=== PATIENT | male | born 1955 | race Caucasian/White ===

== ENCOUNTER 2025-01-13 15:04 | Inpatient (IN) | payer MEDICARE, SELFPAY ==
[2025-01-13] VITALS (14 sets, daily range): BP systolic 73–169; BP diastolic 47–109; PULSE 59–130; RESP 11–24; TEMP 36.8; O2SAT 93–100; BMI 36.1
--- NOTE | ~2025-01-13 | US_ITS ---
EXAMINATION: US pelvic limited DATE: 01/16/2025 16:15 CDT INDICATION: Patient on continuous bladder irrigation after TURBT, and chronic anticoagulation for mec hanical valve. TECHNIQUE: Grayscale, color Doppler, and pulsed Doppler images of the bladder was obtained. COMPARISON: None.If prior imaging is available, comparison will be performed. FINDINGS: The bladder is minimally distended, with a Love catheter visualized. Within the bladder, is a 4.8 x 3.3 x 4.8 cm avascular focus of mixed echogenicity both superior and a nterior to the Love catheter balloon. This may represent patient's primary malignancy (although one would expect intrinsic vascular flow), versus a focus of thrombus (more likely). IMPRESSION: Findings within the bladder lumen which may represent thrombus (most likely), as detailed above. Reviewed, dictated and finalized at location A. IMPRESSION: Findings within the bladder lumen which may represent thrombus (most likely), a s detailed above.
--- NOTE | 2025-01-13 15:37 | ED.MALEGU ---
HPI - Male Genitourinary General Chief complaint: Urogenital-Male Stated complaint: Bladder mass removed-unable to urinate/bleeding Time Seen by Provider: 01/13/25 15:36 Source: patient and other ([facility]) Limitations: no limitations History of Present Illness HPI Narrative: Patient presents with inability to he urinary retention as well as hematuria. He felt a pressure in his abdomen has been having bloody urine. His last void was 3 hours prior to arrival. He recently underwent urologic surgery. He is on both warfarin as well as Lovenox having taken both at 12 noon. Related Data Home Medications ?Medication ?Instructions ?Recorded ?Confirmed ?Last Taken ?Type allopurinol 100 mg tablet 100 mg PO DAILY 01/13/25 01/13/25 01/13/25 09:00 History atorvastatin 80 mg tablet 80 mg PO QPM 01/13/25 01/13/25 01/13/25 09:00 History enoxaparin 120 mg/0.8 mL 120 mg subcut Q12H 01/13/25 01/13/25 01/13/25 12:00 History subcutaneous syringe fluticasone furoate 200 1 inh inhalation Q24H 01/13/25 01/13/25 01/13/25 09:00 History mcg-vilanterol 25 mcg/dose inhalation powder (Breo Ellipta) tiotropium bromide 2.5 2 puff inhalation Q24H 01/13/25 01/13/25 01/13/25 09:00 History mcg/actuation mist for inhalation (Spiriva Respimat) warfarin 4 mg tablet 4 mg PO WEEKLY 01/13/25 01/13/25 01/13/25 12:00 History Allergies Allergy/AdvReac Type Severity Reaction Status Date / Time No Known Allergies Allergy Verified 01/13/25 15:06 [facility] Past Medical History Medical History (Updated 01/13/25 @ 23:10 by Judie Thapa APRN) HLD (hyperlipidemia) Chronic anticoagulation r/t AV replacement Bladder cancer Surgical History Surgical History (Updated 01/14/25 @ 07:33 by Colin Hyman PA-C) History of aortic valve replacement History of transurethral resection of bladder tumor (TURBT) Social History Social History Smoking status: Former smoker Tobacco type: cigarettes Second hand tobacco smoke exposure: No Alcohol intake: never Substance use: never Substance use type: does not use Do You Feel Safe in your Home?: Yes Lack of Transportation: No Lack of Food: Never True Current Housing: I Have Housing Concerned About Future Housing: No Difficulty Paying Gas/Electric Bills: No Difficulty Paying for Meds: No Currently Unemployed: No Education: Trade/Vocational Certificate Difficulty w/ Childcare or Family Care: No Spiritual care concerns: No Exam Narrative: GENERAL: Well-appearing, well-nourished, in mild acute distress. HEAD: Normocephalic, atraumatic. EYES: Non injected, non icteric ENT: Nares clear, no rhinorrhea or epistaxis. NECK: Supple. CHEST: Speaking in full sentences. No respiratory distress. HEART: Tachycardic rate and rhythm. . ABDOMEN: Soft, distended. : Love in place but only scant marked hematuria, not currently draining EXTREMITIES: Normal range of motion. No lower extremity edema. SKIN: Warm, dry, no rash. NEURO: No focal deficits. Alert and oriented x3. PSYCH: Normal mood and affect. Course Vital Signs Vital signs: Vital Signs Temperature 98.2 F 01/13/25 15:11 Pulse Rate 130 H 01/13/25 15:11 Respiratory Rate 16 01/13/25 15:11 Blood Pressure 169/109 H 01/13/25 15:11 Pulse Oximetry 100 01/13/25 15:11 Temperature 97.7 F 01/14/25 05:20 Pulse Rate 77 01/14/25 05:20 Respiratory Rate 18 01/14/25 05:20 Blood Pressure 116/70 01/14/25 05:20 Pulse Oximetry 94 01/14/25 05:20 MDM - Male Genitourinary MDM Narrative Medical decision making narrative: Patient presents with acute urinary retention as well as hematuria, presumably the former due to the latter. Recently underwent urologic surgery. In the emergency department he is afebrile vital signs notable for marked tachycardia at 130 beats per minute as well as hypertension, 160 /109. Janell [facility]RA from urology comes to ED and had retrieved collateral information: Patient had TURBP with Dr. Brown at [facility] [place] and pathology came back with poorly differentiated urothelial carcinoma. 2.2 bladder wall mass on the 8th was seen. He is on chronic Coumadin (and Lovenox) for aortic valve replacement. Former Smoker. INR was 1 at [facility] this morning ; also had a CT abd/pelvis w/ and w/o imaging there. Having gross hematuria. Recommending Hold coumadin and all blood thinners. Start CBI. Patient had over 400 cc on bladder scan. Catheter inserted but did not drain due to amount of hematuria. Dr. Sweeney and Dr Watson come to bedside. Special hematuria catheter is inserted and CBI initiated. Urine output goes from dark, gross hematuria to energy conservation representative but still significant hematuria. Patient becomes hypotensive after this, suspect the sympathetic response has been released but also possibly a component of response from morphine. ALT and alk-phos elevation. Mild leukocytosis. Patient admitted to hospitalist service. Lab Data Attestation: I reviewed the patient's lab results. 01/14/25 06:19 01/14/25 06:19 Labs: Lab Results 01/13/25 01/14/25 Range/Units 16:31 06:19 WBC 11.5 H 12.5 H (4.5-10.0) K/mm3 RBC 4.68 3.83 L (4.6-6.20) M/mm3 Hgb 14.3 11.8 L (14.0-18.0) g/dL Hct 44.4 37.1 L (42.0-52.0) % MCV 94.9 96.9 (80-100) fl MCH 30.6 30.8 (26-34) pg MCHC 32.2 31.8 L (32-36) g/dl RDW 12.9 13.1 (11.5-14.5) % Plt Count 356 297 (150-375) k/mm3 MPV 9.8 9.9 (7.4-10.4) fl Immature Gran % (Auto) 0.4 0.6 H (0-0.5) % Neut % (Auto) 81.4 H 75.8 H (45.5-73.1) % Lymph % (Auto) 9.8 L 11.5 L (18.3-44.2) % Snyder % (Auto) 6.9 11.0 H (2.6-8.5) % Eos % (Auto) 0.9 0.8 (0-4.4) % Baso % (Auto) 0.6 0.3 (0.2-1.2) % Lymph # (Auto) 1.13 1.44 (0.9-3.2) K/mm3 Snyder # (Auto) 0.8 H 1.4 H (0.1-0.6) K/mm3 Eos # (Auto) 0.1 0.1 (0-0.3) K/mm3 Baso # (Auto) 0.1 0.0 (0.0-0.1) K/mm3 Abs Immat Gran (auto) 0.05 H 0.08 H (0.00-0.031) K/mm3 Absolute Neuts (auto) 9.4 H 9.5 H (1.3-6.7) K/mm3 Absolute Nucleated RBC 0.000 0.000 (0.0-0.012) K/mm3 Nucleated RBC % 0.0 0.0 (0.0-0.2) % PT 13.4 (11.1-14.7) Seconds INR 1.0 APTT 25.8 (22.3-36.8) Seconds Sodium 136 L 136 L (137-145) mmol/L Potassium 4.5 4.3 (3.4-5.0) mmol/L Chloride 105 106 (98-107) mmol/L Carbon Dioxide 19 L 25 (22-30) mmol/L Anion Gap 12 5 (4-12) mmol/L BUN 18 16 (9-20) mg/dL Creatinine 1.05 1.00 (0.7-1.3) mg/dL Estim Creat Clear Calc 72 73 ml/min Estimated GFR > 60 > 60 (59 - ) Glucose 119 H 101 (65-110) mg/dL Calcium 9.2 8.6 (8.4-10.2) mg/dL Total Bilirubin 0.8 (0.2-1.3) mg/dL AST 44 (17-59) U/L ALT 56 H (6-50) U/L Alkaline Phosphatase 200 H (38-126) U/L Total Protein 7.0 (6.3-8.2) g/dL Albumin 4.1 (3.5-5.1) g/dL Discharge Plan Discharge Clinical Impression: ALT (SGPT) level raised, Alkaline phosphatase elevation, Leukocytosis, Acute urinary retention, Bladder mass, Hematuria Patient Disposition: Still a Patient Condition: Stable
--- NOTE | 2025-01-13 15:52 | PC.NURSE ---
able to place [address] catheter, not draining attempting to irrigate catheter, some clots removed, still not draining Urology PA in room nno at this time
--- OUTSIDE RECORDS SUMMARY | 2025-01-13 15:56 | XMS_ITS | Encounter Summary ---
Author Organization [facility] Address [address] [place] [address] Care Team Providers Care Paper Products Printer Name Role Phone Diaz Chen MD Primary Care Provider Birgit Phipps MD Unavailable Kym Maguire [facility] Unavailable [phone] Reason for Referral * Imaging (Routine) - Closed Specialty Diagnoses / Procedures Referred By Contac t Referred To Contact RADIOLOGY Diagnoses Bladder mass Procedures CT ABD+[place] [address] [place] [address] Phone: tel: fax: Referral ID Status Reason Start Date Expiration Date Visits Re quested Visits Authorized [id number] Closed 01/05/2025 01/06/2026 1 1 Reason for Visit * Imaging (Routine) - Closed Specialty Diagnoses / Procedures Referred By Contac t Referred To Contact RADIOLOGY Diagnoses Bladder mass Procedures CT ABD+[place] [address] [place] [address] Phone: tel: fax: Referral ID Status Reason Start Date Expiration Date Visits Re quested Visits Authorized [id number] Closed 01/05/2025 01/06/2026 1 1 Encounter Details Date Type Department Care Team (Late st Contact Info) Description 01/13/2025 7:08 AM CDT Hospital Encounter 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 Sexual Orientation Not on file Occupation Industry Job Start Date Job End Date Self-employed [employer] Not on file Not on file Not on file Not on file Not on file Not on file Not on file documented as of this encounter Plan of Treatment Pending Results Name Type Priority Associated Diagnoses Date /Time CT ABD+PEL WWO CON CT Routine Bladder mass 01/13/2025 7:53 AM CDT Scheduled Orders Name Type Priority Associated Diagnoses Orde r Schedule CT ABD+PEL WWO CON CT Routine Bladder mass Once for 1 Occurrences starting 01/13/2025 until 01/13/2025 documented as of this encounter Visit Diagnoses Diagnosis Bladder mass Other specified disorders of bladder documented in this encounter Administered Medications Inactive Administered Medications - up to 3 most recent administrations Medication Order MAR Action Action Date Dose Rate Site iopamidol (ISOVUE-370) 76 % injection 91 mL 91 mL, Intravenous, IMG once as needed, Contrast, 1 dose, Starting on Thu01/13/25 at 0753, Until Thu01/13/25 at 0753 Given 01/13/2025 7:53 AM CDT 91 mLs documented in this encounter Care Teams Paper Products Printer Relationship Specialty Start Date End Date Diaz Chen MD [address] [place] [phone] PCP - General FAMILY PRACTICE 10/13/16 Birgit Phipps MD [address] [place] [address] [phone] Consulting Physician CARDIOVASCULAR DISEASE 12/24/24 Kym Maguire, NYA- [address] [place] [address] [phone] NURSE PRACTITIONER ADULT HEALTH 12/24/24 documented as of this encounter
--- OUTSIDE RECORDS SUMMARY | 2025-01-13 15:56 | XMS_ITS | Encounter Summary ---
Author Organization [facility] Address [address] [place] [address] Care Team Providers Care Cesspool Cleaner Name Role Phone Diaz Chen MD Primary Care Provider Austin Stokes MD Unavailable [phone] Bahman Acuña COMMUNITY RELATIONS COORDINATOR Unavailable [phone] Birgit Phipps MD Unavailable Kym Maguire [facility] Unavailable [phone] Encounter Details Date Type Department Care Team (Late st Contact Info) Description 12/12/2015 Abstract [facility] [place] [address] [place] [address] Austin Stokes MD [address] [facility], [address] [place], [place] [phone] Social History Tobacco Use Types Packs/Day Years Used Date Smoking Tobacco: Former Alcohol Use Standard Drinks/Week Comments No 0 (1 standard drink = 0.6 oz pur e alcohol) Sex and Gender Information Value Date Recorded Sex Assigned at Male 01/13/2025 7:06 AM CDT Legal Sex Male 9:26 PM CDT Gender Identity Male 11/25/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 Sexual Orientation Not on file Occupation Industry Job Start Date Job End Date Self-employed [employer] Not on file Not on file Not on file documented as of this encounter Plan of Treatment Not on file documented as of this encounter Visit Diagnoses Not on filedocumented in this encounter Additional Health Concerns Infection Onset Date Last Indicated Resolved Time COVID-19 Rule Out 09/15/2020 09/15/2020 09/16/2020 5:53 PM ELIGIBILITY SUPERVISOR documented as of this encounter Care Teams Cesspool Cleaner Relationship Specialty Start Date End Date Diaz Chen MD [address] [place], [place] [phone] PCP - General FAMILY PRACTICE 10/13/16 Austin Stokes MD [address] [place], [place] [phone] CARDIOVASCULAR DISEASE 10/13/16 3 5 Bahman Acuña APRN [address] [place], [place] [phone] Nurse Practitioner NURSE PRACTITIONER 09/19/21 12/23/24 Birgit Phipps MD [address] [place] [phone] Consulting Physician CARDIOVASCULAR DISEASE 12/24/24 Kym Maguire, ANP- [address] [place] [address] [phone] NURSE PRACTITIONER ADULT HEALTH 12/24/24 documented as of this encounter
--- OUTSIDE RECORDS SUMMARY | 2025-01-13 15:56 | XMS_ITS | Encounter Summary ---
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 Sexual Orientation Not on file Occupation Industry Job Start Date Job End Date Self-employed [employer] Not on file Not on file Not on file Not on file Not on file Not on file Not on file documented as of this encounter Plan of Treatment Not on file documented as of this encounter Visit Diagnoses Not on filedocumented in this encounter Care Teams Durability Engineer Relationship Specialty Start Date End Date Diaz Chen MD [address] [place] [phone] PCP - General FAMILY PRACTICE 10/13/16 Birgit Phipps MD [address] [place] [address] Consulting Physician CARDIOVASCULAR DISEASE 12/24/24 Kym Maguire, [facility]- [address] [place] [address] [phone] NURSE PRACTITIONER ADULT HEALTH 12/24/24 documented as of this encounter
--- OUTSIDE RECORDS SUMMARY | 2025-01-13 15:56 | XMS_ITS | Encounter Summary ---
Author Organization [facility] Address [facility] [place] [address] Care Team Providers Care Producer Name Role Phone Diaz Chen MD Primary Care Provider [phone] Birgit Phipps MD Unavailable Kym Maguire [facility]- Unavailable [phone] Encounter Details Date Type Department Care Team (Late st Contact Info) Description 01/13/2025 Orders Only [facility] [address] [facility] [address] [place] [address] Aidan Matthews, PAYROLL TECHNICIAN [address] [place] [address] Social History Tobacco Use Types Packs/Day Years Used Date Smoking Tobacco: Former Cigarettes Q uit: 2011 Smokeless Tobacco: Never Alcohol Use Standard Drinks/Week Comments Yes 0 (1 standard drink = 0.6 oz pur e alcohol) Occasionally- weekends Sex and Gender Information Value Date Recorded Sex Assigned at Male 01/13/2025 7:06 AM CDT Legal Sex Male 9:26 PM CDT Gender Identity Male 11/25/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 Sexual Orientation Not on file Occupation Industry Job Start Date Job End Date Self-employed [employer] Not on file Not on file Not on file Not on file Not on file Not on file Not on file documented as of this encounter Plan of Treatment Not on file documented as of this encounter Results * PROTIME/INR, VENOUS (01/13/2025 7:36 AM CDT) PROTIME 12.0 9.4 - 12.5 SEC 01/13/2025 7:[address] [facility] INR 1.0 0.8 - 1.0 01/13/2025 7:[address] [facility] 01/13/2025 7:36 AM CDT Aidan Matthews PAYROLL TECHNICIAN LABORATORY Fin al Result [facility] [address] [place] [address], documented in this encounter Visit Diagnoses Diagnosis Anticoagulated- Primary Encounter for long-term (current) use of anticoagulants Heart valve problem Endocarditis, valve unspecified, unspecified cause documented in this encounter Care Teams Producer Relationship Specialty Start Date End Date Diaz Chen MD [address] [place] [phone] PCP - General FAMILY PRACTICE 10/13/16 Birgit Phipps MD [address] [place] [address] [phone] Consulting Physician CARDIOVASCULAR DISEASE 12/24/24 Kym Maguire, ANP- [address] [place] [address] [phone] NURSE PRACTITIONER ADULT HEALTH 12/24/24 documented as of this encounter
--- OUTSIDE RECORDS SUMMARY | 2025-01-13 15:56 | XMS_ITS | Clinical Summary ---
Author Organization [facility] Address [address] [place] [address] Care Team Providers Care Spacer Type Bar And Segment Name Role Phone Diaz Chen MD Primary Care Provider Birgit Phipps MD Unavailable Kym Maguire [facility]- Unavailable [phone] Allergies No known active allergies Medications aspirin 81 MG chewable tablet Chew 1 tablet (81 mg total) by mouth daily. 12/12/19 16 Active Multiple Vitamin tablet Take 1 tablet by mouth daily. 12/12/19 16 Active warfarin 5 MG tablet Take 1 tablet (5 mg total) by mouth see administration instructions. Active SPIRIVA RESPIMAT 2.5 MCG/ACT inhaler (SPIRIVA RESPIMAT) Inhale 1 puff into the lungs daily. 07/30/20 20 Active atorvastatin 80 MG tablet Take 1 tablet (80 mg total) by mouth daily. 1 tablet daily 11/29/19 22 Active BREO ELLIPTA 200-25 MCG/ACT inhaler Inhale 1 puff into the lungs daily. 12/30/19 25 Active allopurinol (ZYLOPRIM) 100 MG tablet Take 1 tablet (100 mg total) by mouth daily. 12/10/19 25 Active enoxaparin (LOVENOX) 40 MG/0.4ML Solution Prefilled Syringe Inject 0.4 mLs (40 mg total) into the skin. Active SYMBICORT 160-4.5 MCG/ACT inhaler Inhale 2 puffs into the lungs 2 (two) times daily. 07/25/20 20 025 Discontin ued(Error ) Active Problems Problem Noted Date Diagnosed Date H/O mechanical aortic valve replacement Aortic stenosis Bicuspid aortic valve Hyperlipidemia Resolved Problems Problem Noted Date Diagnosed Date Resolved Date Bilateral carotid artery stenosis 09/13/2019 11/29/2021 HTN (hypertension) 2 Murmur 11/29/2021 Encounters Date Type Department Care Team Description 01/13/2025 7:10 AM CDT Hospital Encounter [facility] [address] [place] [address] Marielos Naidu NP Arrived 01/13/2025 7:08 AM CDT Hospital Encounter [facility] [address] [place] [address] [address] Veronica Brown III, MD Arrived 01/13/2025 Orders Only [facility] [place] [address] Marielos Naidu NP 01/13/2025 Travel 01/10/2025 12:54 PM CDT - 01/10/2025 1:55 PM CDT Surgery [facility] [address] [place] [address] [place] [address] Veronica Brown III, MD CYSTOSCOPY TRANSURETHRAL RESECTION BLADDER TUMOR 01/10/2025 12:18 PM CDT Anesthesia Event [facility] [place] [address] Alee Waddell CRNA 01/10/2025 10:33 AM CDT - 01/10/2025 2:42 PM CDT Hospital Encounter [facility] [address] [place] [address] Veronica Brown III, MD Discharge Disposition: Home or Self Care (Routine Discharge) 01/10/2025 Travel 01/05/2025 Travel 01/03/2025 Telephone [facility] [address] [place] [address] Birgit Phipps MD Called To Cancel Office Appt. 12/30/2024 10:49 AM CDT - 12/30/2024 11:59 PM CDT Hospital Encounter [facility] [address] [place] [address] Diaz Chen MD Discharge Disposition: Home or Self Care (Routine Discharge) 12/30/2024 10:46 AM CDT - 12/30/2024 10:48 AM CDT Hospital Encounter [facility] [address] [place] [address] Marielos Naidu NP Discharge Disposition: Home or Self Care (Routine Discharge) 12/30/2024 Orders Only [facility] [address] [place] [address] Marielos Naidu NP 12/30/2024 Travel 12/24/2024 Telephone [facility] [facility] [address] [place] [phone] Birgit Phipps MD Reschedule from Last 3 Months Family History Medical History Relation Comments Coronary artery disease Neg Hx No oz ture coronary artery disease. 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 Sexual Orientation Not on file Occupation Industry Job Start Date Job End Date Self-employed [employer] Not on file Not on file Not on file Not on file Not on file Not on file Not on file Last Filed Vital Signs Vital Sign Reading Time Taken Comments Blood Pressure 133/83 01/10/2025 2:20 PM CDT Pulse 107 01/10/2025 2:20 PM CDT Temperature 35.7 C (96.2 F) 01/10/2025 1:47 PM CDT Respiratory Rate 16 01/10/2025 2:20 PM CDT Oxygen Saturation 92% 01/10/2025 2:20 PM CDT Inhaled Oxygen Concentration - - Weight 108.9 kg (240 lb) 01/10/2025 11:33 AM CDT Height 170.2 cm (5' 7 ) 01/10/2025 11:33 AM CDT Body Mass Index 37.59 01/10/2025 11:33 AM CDT Plan of Treatment Health Maintenance Due Date Last Done Comments Pneumococcal Vaccine: 65+ Years (1 of 2 - PCV) 1961 Hepatitis C 1973 DTaP, Tdap and Td Vaccines ( 1 - Tdap) 1974 Zoster Vaccines (1 of 2) 2005 RSV Immunization or 60+ Years (1 - Risk 60-74 years 1-dose series) 2015 Annual Medicare Wellness Visit 2020 COVID-19 Vaccine (1 - 2023-2 5 season) 2024 Colorectal Cancer Screening Colonoscopy (10 Years) 09/18/2030 09/18/2020, 09/18/2020 AAA SCREENING Completed 12/30/2024, 07/22/2019, 12/03/2016 Meningococcal B Vaccine Aged Out No l onger eligible based on patient's age to complete this topic Meningococcal Vaccine Aged Out No isha justin eligible based on patient's age to complete this topic RSV Immunizations Under 20 Months Aged Out No longer eligible b ased on patient's age to complete this topic Procedures Procedure Name Priority Date/Time Associated Diagnosis Comments PROTHROMBIN TIME, VENOUS Routine 01/13/2025 7:36 AM CDT Anticoagulated Heart valve problem CYSTOURETHROSCOPY,F ULGUR .5-2CM LESN 01/10/2025 12:03 PM CDT BLADDER MASS, N32.89 PATHOLOGY Routine 01/10/2025 12:00 AM CDT PROTHROMBIN TIME, VENOUS Routine 12/30/2024 11:18 AM CDT Encounter for current long-term use of anticoagulants CT ABD+PEL WO CON STAT 12/30/2024 11: 05 AM CDT Hematuria COLONOSCOPY 09/18/2020 11:52 AM SENIOR QUALITY TECHNICIAN from Last 3 Months or Most Recently Relevant to Health Maintenance Results * PROTIME/INR, VENOUS (01/13/2025 7:36 AM CDT) Only the most recent of2 resultswithin the time period is included. PROTIME 12.0 9.4 - 12.5 SEC 01/13/2025 7:47 AM CDT [facility] INR 1.0 0.8 - 1.0 01/13/2025 7:47 AM CDT [facility] 01/13/2025 7:36 AM CDT Marielos Naidu PARTS ANALYST LABORATORY Fin al Result [facility] [address] [place] [address], * Pathology (01/10/2025 12:00 AM CDT) PATHOLOGY [facility] Department of Laboratory Medicine [address] [place] [address] , extension [phone] Pathology Report Surgical Pathology Report Name: RAYMUNDO HILL Specimen #: [id number] Age: 1 1955 (Age: 69) Location: [facility] Sex: M Procedure Date: 01/10/2025 Hospital #: [id number] Date Received: 01/11/2025 Date Reported: 01/13/2025 Provider: VERONICA BROWN III, MD Source: A: Bladder, mass B: Bladder, base of tumor Clinical History: Bladder mass FINAL DIAGNOSIS: A. Bladder, mass, transurethral section: -Invasive poorly differentiated urothelial carcinoma, see comment. -Muscularis propria not present. B. Bladder, base of tumor, transurethral resection: -Invasive poorly differentiated urothelial carcinoma, see comment. -Muscularis propria not present. Diagnosis Comment: This tumor is composed of an invasive poorly differentiated urothelial carcinoma with a mixture of papillary urothelial carcinoma, invasive conventional epithelial urothelial cells, atypical spindle cells, and osteoclast like giant cells. The epithelial/papillary component is positive for CK7. Keratin AE1/AE3 is negative. Both the epithelial and spindle cell components are positive for p63 and GATA3. Osteoclast like giant cells are negative for all markers. These findings are in keeping with an invasive poorly differentiated urothelial carcinoma. Morphologically and immunophenotypically the lesion is best classified as a poorly differentiated urothelial carcinoma with osteoclast rich giant cells. This case was seen with DrsDane Xie, Orlando Sewell, and Mikey Kennedy who agree with the diagnosis. Gross Description: A. Received in formalin, labeled with a patient label and as bladder tumor , is a 4.1 x 3.9 x 1.3 cm aggregate of white-bailey soft tissue fragments. The specimen is entirely submitted in cassettes A1-A6. B. Received in formalin, labeled with a patient label and as base bladder tumor , are 3 portions of bailey-brown soft tissue ranging from 0.5 to 1.1 cm in greatest dimension. The specimen is entirely submitted in cassette B1. All immunohistochemical and histochemical tests were developed by and performed at [facility], [address] [place] [address]. All tests reported here have not been cleared or approved by the U.S. Food and Drug Administration (FDA). This laboratory is regulated under CLIA as qualified to perform high-complexity testing. These tests are used for clinical purposes. They should not be regarded as investigational or for research. Positive and negative controls show appropriate reactivity. Gross examination (when applicable), interpretation, and sign out were performed at [facility], [address] [place] [address]. Electronically Signed Out EDNA CURTIS MD [facility] TISSUE URINARY BLADDER STRUCTURE / Unknown 01/10/2025 1:07 PM CDT Tissue specimen (specimen) URINARY BLADDER STRUCTURE / Unknown 01/10/2025 1:08 PM CDT us Veronica Brown III, MD PATHOLOGY/CYTOLOGY ORDER HARMEET Final Result [facility] [address] [place], [place] [address] [phone] [id number] * CT ABD+PEL WO CON (12/30/2024 11:05 AM CDT) Anatomical Region Laterality Modality Abdomen Computed Tomogra phy 12/30/2024 11:1 6 AM CDT Impressions 12/30/2024 11:23 AM CDT IMPRESSION: 1. No acute intra-abdominal or intrapelvic process identified. 2. Urinary bladder mass as described, malignancy until proven otherwise. Urologic consultation is recommended. 3. No evidence of locally invasive or metastatic disease. 4. New 3.4 cm infrarenal abdominal aortic aneurysm. 5. Additional chronic/nonurgent findings as described. Ordered By: MARIELOS NAIDU Interpreted By: Tim Ramirez MD, 12/30/2024 11:16 AM Narrative 12/30/2024 11:23 AM CDT [address] [place] [address] Examination: CT of the abdomen and pelvis without contrast. Exam time: 1108 hours. Clinical history: Painless hematuria. Comparison: 02/06/2009. Technique: Spiral scanning was performed through the abdomen and pelvis without contrast. Sagittal and coronal reconstructions were performed from the data set. A dose lowering technique was used for this procedure, which may include, but is not limited to, dose reduction techniques, automated exposure control, the use of iterative reconstruction and ALARA/Image Gently techniques. Findings: There is minor scarring at the lung bases including a calcified granuloma in the middle lobe. Allowing for respiratory motion, the lung bases are otherwise clear. No pleural effusions are seen. The liver, spleen, gallbladder, pancreas and adrenal glands appear unremarkable for the noncontrast technique. There is a 1.3 cm partially exophytic cyst arising from the lateral aspect of the lower pole of the right kidney. This requires no further workup or surveillance. The kidneys are otherwise unremarkable for the noncontrast technique. There is an approximately 2.8 cm mixed attenuation mass in the right posterolateral aspect of the urinary bladder, malignancy until proven otherwise. Urologic consultation is recommended. The urinary bladder is otherwise unremarkable. There is no sign of gross extravesical invasion. The seminal vesicles appear unremarkable. A normal-appearing appendix is visible. There is no ascites, lymphadenopathy or bowel distention. There is now an approximately 3.4 cm infrarenal abdominal aortic aneurysm. There are no signs of leakage. Anatomic variant aortic origin of the splenic and common hepatic arteries is again evident. No suspicious bony lesion is identified. Procedure Note Tim Ramirez MD - 12/30/2024 [facility] [address] [facility] [place] [address] Examination: CT of the abdomen and pelvis without contrast. Exam time: 1108 hours. Clinical history: Painless hematuria. Comparison: 02/06/2009. Technique: Spiral scanning was performed through the abdomen and pelviswithout contrast. Sagittal and coronal reconstructions were performed fromthe data set. A dose lowering technique was used for this procedure,which may include, but is not limited to, dose reduction techniques,automated exposure control, the use of iterative reconstruction andALARA/Image Gently techniques. Findings: There is minor scarring at the lung bases including a calcifiedgranuloma in the middle lobe. Allowing for respiratory motion, the lungbases are otherwise clear. No pleural effusions are seen. The liver,spleen, gallbladder, pancreas and adrenal glands appear unremarkable forthe noncontrast technique. There is a 1.3 cm partially exophytic cystarising from the lateral aspect of the lower pole of the right kidney.This requires no further workup or surveillance. The kidneys are otherwiseunremarkable for the noncontrast technique. There is an approximately 2.8cm mixed attenuation mass in the right posterolateral aspect of theurinary bladder, malignancy until proven otherwise. Urologic consultationis recommended. The urinary bladder is otherwise unremarkable. There is nosign of gross extravesical invasion. The seminal vesicles appearunremarkable. A normal-appearing appendix is visible. There is no ascites,lymphadenopathy or bowel distention. There is now an approximately 3.4 cminfrarenal abdominal aortic aneurysm. There are no signs of leakage.Anatomic variant aortic origin of the splenic and common hepatic arteriesis again evident. No suspicious bony lesion is identified. IMPRESSION: 1. No acute intra-abdominal or intrapelvic process identified. 2. Urinary bladder mass as described, malignancy until proven otherwise.Urologic consultation is recommended. 3. No evidence of locally invasive or metastatic disease. 4. New 3.4 cm infrarenal abdominal aortic aneurysm. 5. Additional chronic/nonurgent findings as described. Ordered By: MARIELOS NAIDU Interpreted By: Tim Ramirez MD, 12/30/2024 11:16 AM us Marielos Naidu PARTS ANALYST CT Fin al Result * COLONOSCOPY (09/18/2020 11:52 AM SENIOR QUALITY TECHNICIAN) us Kelvin Syed MD GI PROCEDURE ORDERABLES Final Result from Last 3 Months or Most Recently Relevant to Health Maintenance Insurance MEDICARE [facility] [id number] [id number] Care Teams Spacer Type Bar And Segment Relationship Specialty Start Date End Date Diaz Chen MD [address] [place] [phone] PCP - General FAMILY PRACTICE 10/13/16 Birgit Phipps MD [address] [place] [phone] Consulting Physician CARDIOVASCULAR DISEASE 12/24/24 Kym Maguire, [facility]- [address] [place] [address] [id number] [place] [address] NURSE PRACTITIONER ADULT HEALTH 12/24/24
--- OUTSIDE RECORDS SUMMARY | 2025-01-13 15:56 | XMS_ITS | Encounter Summary ---
Author Organization [facility] Address [facility] [place] [address] Care Team Providers Care Earth Observations Chief Scientist Name Role Phone Diaz Chen MD Primary Care Provider Birgit Phipps MD Unavailable Kym Maguire [facility]- Unavailable [phone] Encounter Details Date Type Department Care Team (Late st Contact Info) Description 01/13/2025 7:10 AM CDT Hospital Encounter [facility] [address] [facility] [address] [address] [place] [address] Aidan Matthews, VISION REHABILITATION THERAPIST [address] [place] [address] Arrived Social History Tobacco Use Types Packs/Day [...] CDT Gender Identity Male 11/25/2021 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 Sexual Orientation Not on file Occupation Industry Job Start Date Job End Date Self-employed [employer] Not on file Not on file Not on file Not on file Not on file Not on file Not on file documented as of this encounter Plan of Treatment Not on file documented as of this encounter Procedures Procedure Name Priority Date/Time Associated Diagnosis Comments PROTHROMBIN TIME, VENOUS Routine 01/13/2025 7:36 AM CDT Anticoagulated Heart valve problem documented in this encounter Results * PROTIME/INR, VENOUS (01/13/2025 7:36 AM CDT) PROTIME 12.0 9.4 - 12.5 SEC 01/13/2025 7:47 AM CDT [facility] INR 1.0 0.8 - 1.0 01/13/2025 7:47 AM CDT [facility] 01/13/2025 7:36 AM CDT Aidan Matthews VISION REHABILITATION THERAPIST LABORATORY Fin al Result Performing Organization Address City/State/[facility] Co de Phone Number [facility] [address] [phone] documented in this encounter Visit Diagnoses Diagnosis Anticoagulated Encounter for long-term (current) use of anticoagulants Heart valve problem Endocarditis, valve unspecified, unspecified cause documented in this encounter Care Teams Earth Observations Chief Scientist Relationship Specialty Start Date End Date Diaz Chen MD [address] [place] [phone] PCP - General FAMILY PRACTICE 10/13/16 Birgit Phipps MD [address] [place] [phone] Consulting Physician CARDIOVASCULAR DISEASE 12/24/24 Kym Maguire [facility]- [address] [place] [address] [phone] NURSE PRACTITIONER ADULT HEALTH 12/24/24 documented as of this encounter
--- NOTE | 2025-01-13 15:59 | P.CONUR_ITS ---
Assessment and Plan Assessment and plan (1) Bladder cancer: Code(s): C67.9 - Malignant neoplasm of bladder, unspecified Status: Acute Assessment and Plan: 01/10/25 TURBT pathology --> invasive poorly differentiated urothelial carcinoma (2) Gross hematuria: Code(s): R31.0 - Gross hematuria Status: Acute Assessment and Plan: On chronic Warfarin since 1998 for aortic valve replacement, bridged on Lovenox following TURBT, last dose 01/13/25 @noon Plan - Please admit under hospitalist service - Please hold all anticoagulation overnight and reassess bleeding in a.m. - Maintain 3-way 22Fr hematuria Love catheter, titrate continuous bladder irrigation to clear - OK to hand-irrigate PRN clots - Follow daily labs - Labs in ER are pending to assess renal function and hemoglobin Urology Consult Note HPI Date Seen: 01/13/25 Primary Care Provider: UNKNOWN,DOCTOR Consult Narrative Reason for consult: Gross hematuria with clots Narrative: Jose Nguyen is a 69 year old male s/p TURBT of ~3cm bladder wall mass 01/10/[address] Brown who presented to the ER today for evaluation of gross hematuria with clot retention. Bladder scan showed >400mL. RN initially placed a 20Fr 3- way Love and was able to irrigate a large clot. Urology was consulted to assist. He states he went to [facility] for an outpatient CT around 0800. He developed thick clots this morning at 10. He was unable to urinate with painful bladder spasms by [address] Spencer & Dr. Bravo present in the ER to irrigate Love. Draining dark red blood with clots. Love exchanged to 3-way 22Fr hematuria catheter, draining pale pink on continuous bladder irrigation. He is on chronic Warfarin since 1998 for aortic valve replacement, bridged on Lovenox following TURBT, last dose today at noon. Restarted anticoagulation 01/11/25. INR this morning 1.0 at [facility]. Former smoker. Review of Systems Constitutional: Constitutional: Reports no additional constitutional complaints Cardiovascular: Cardiovascular: Denies chest pain Respiratory: Respiratory: Denies dyspnea Gastrointestinal: Gastrointestinal: Denies nausea and Denies vomiting Genitourinary: Genitourinary: Reports as per HPI, Reports hematuria (with clots) and Reports urinary urgency Comments: Urinary retention Neurologic: Denies confusion Psychiatric: Psychiatric: Reports no additional psychiatric complaints Meds Home Medications and Allergies Allergies Allergy/AdvReac Type Severity Reaction Status Date / Time No Known Allergies Allergy Verified 01/13/25 15:06 Vital Signs Vital Signs - 24 hr 01/13/25 15:11 Temperature 98.2 F Pulse Rate 130 H Respiratory Rate 16 Blood Pressure 169/109 H Pulse Oximetry 100 Exam Const: General: uncomfortable HENMT: Mouth: Yes moist mucous membranes abnormal Resp: Effort & Inspection: normal respiratory effort Cardio: Rate: tachycardic GI: Inspection: distended : Male General Exam: Yes tenderness Urinary Catheter: Urinary Catheter: urine red and urine with clots Neuro: Speech: normal speech Extrem: General: no edema Psych: Speech and movement: Normal speech and movement present Affect: normal affect
[2025-01-13] MEDS: NACL 0.9% IRRIGATION POUR BOTTLE 500 ML (16:00)
[2025-01-13] MEDS: MORPHINE SULFATE (*CRX) 4 MG/ML INJ IV PUSH (16:36)
[2025-01-13] MEDS: WATER FOR IRRIGATION, STERILE 500 ML BOTTLE 1000 ML (16:37)
[2025-01-13 16:38] LABS: Basophils Absolute Auto 0.1 K/mm3 (0.0-0.1); Basophils Percent Auto 0.6 % (0.2-1.2); Eosinophils Absolute Auto 0.1 K/mm3 (0-0.3); Eosinophils Percent Auto 0.9 % (0-4.4); Hematocrit 44.4 % (42.0-52.0); Hemoglobin 14.3 g/dL (14.0-18.0); Immature Granulocyte Absolute 0.05 K/mm3 (0.00-0.031); Immature Granulocyte Percent A 0.4 % (0-0.5); Lymphocytes Absolute Auto 1.13 K/mm3 (0.9-3.2); Lymphocytes Percent Auto 9.8 % (18.3-44.2); Mean Corpuscular HGB Conc 32.2 g/dl (32-36); Mean Corpuscular Hemoglobin 30.6 pg (26-34); Mean Corpuscular Volume 94.9 fl (80-100); Mean Platelet Volume 9.8 fl (7.4-10.4); Monocytes Absolute Auto 0.8 K/mm3 (0.1-0.6); Monocytes Percent Auto 6.9 % (2.6-8.5); Neutrophils Absolute Auto 9.4 K/mm3 (1.3-6.7); Neutrophils Percent Auto 81.4 % (45.5-73.1); Platelet Count Result 356 k/mm3 (150-375); Red Blood Count 4.68 M/mm3 (4.6-6.20); Red Cell Distribution Width 12.9 % (11.5-14.5); White Blood Count 11.5 K/mm3 (4.5-10.0)
--- NOTE | 2025-01-13 16:38 | PC.NURSE ---
nromal saline 1000ml was given to urologist for CBI irrigation to keep bladder irrigating while waiting for 3000ml bags to come from central supply.
[2025-01-13 16:58] LABS: Prothrombin Time 13.4 Seconds (11.1-14.7)
[2025-01-13 16:59] LABS: Partial Thromboplastin Time 25.8 Seconds (22.3-36.8)
[2025-01-13 17:00] LABS: Alanine Aminotransferase 56 U/L (6-50); Albumin Level 4.1 g/dL (3.5-5.1); Alkaline Phosphatase 200 U/L (38-126); Anion Gap 12 mmol/L (4-12); Aspartate Amino Transferase 44 U/L (17-59); Bilirubin,Total 0.8 mg/dL (0.2-1.3); Blood Urea Nitrogen 18 mg/dL (9-20); Calcium 9.2 mg/dL (8.4-10.2); Carbon Dioxide 19 mmol/L (22-30); Chloride 105 mmol/L (98-107); Estimated CRCL calculation 72 ml/min; Estimated Glomerular Filt Rate > 60; Glucose 119 mg/dL (65-110); Potassium 4.5 mmol/L (3.4-5.0); Sodium 136 mmol/L (137-145)
[2025-01-13] MEDS: SODIUM CHLORIDE 0.9% IV 1,000 ML 999 ML IV CONT (17:08)
[2025-01-13] MEDS: ONDANSETRON INJ 4 MG/2 ML VIAL IV PUSH (17:09)
[2025-01-13] MEDS: HYOSCYAMINE SULFATE 0.125 MG TABLET SUBLINGUAL ×2 (17:30→21:44)
--- NOTE | 2025-01-13 19:40 | PM.IMHP ---
H&P: HPI History of Present Illness Date/Time: 01/13/25 19:40 Chief Complaint: Urinary Retention Narrative: 69 y/o M with PMH of urothelial carcinoma, gout, and hyperlipidemia presents here with acute urinary retention. The patient presents here from home on 01/13 for further evaluation of acute urinary retention. He reports his last urination was 3 hours prior to arrival. This was precipitated by a hematuria with (size (clots). Retention is accompanied by suprapubic pressure and bladder spasms. Denies fever, chills, body aches, nausea, vomiting, diarrhea. Bladder scan upon arrival showed > 400 mL retained. The patient reports he recently underwent a TURBT at [facility]. Pathology showed poorly differentiated urothelial carcinoma. Of note, for the TURBT he was placed on Lovenox. Patient was to start transition back to Coumadin today. He reports the Lovenox was to be extended a few more days into next week. Patient took his Lovenox dose and 1st Coumadin dose today at noon. Initial VS at presentation: 98.2? F, HR 130, RR 16, 169/109, and 100% on RA. ED workup showed: WBC 11.5, normal coags, no significant electrolyte derangements, creatinine 1.05 and GFR >60, glucose 119. Review of Systems Review of Systems: All systems reviewed & are unremarkable except as noted in HPI and below PMFSH Past Medical History Medical History (Updated 01/13/25 @ 23:10 by Judie Thapa APRN) HLD (hyperlipidemia) Chronic anticoagulation r/t AV replacement Bladder cancer Surgical History Surgical History History of aortic valve replacement History of transurethral resection of bladder tumor (TURBT) Meds Home Medications and Allergies Home Medications ?Medication ?Instructions ?Recorded ?Confirmed ?Type allopurinol 100 mg tablet 100 mg PO DAILY 01/13/25 01/13/25 History atorvastatin 80 mg tablet 80 mg PO QPM 01/13/25 01/13/25 History enoxaparin 120 mg/0.8 mL 120 mg subcut Q12H 01/13/25 01/13/25 History subcutaneous syringe fluticasone furoate 200 1 inh inhalation Q24H 01/13/25 01/13/25 History mcg-vilanterol 25 mcg/dose inhalation powder (Breo Ellipta) tiotropium bromide 2.5 2 puff inhalation Q24H 01/13/25 01/13/25 History mcg/actuation mist for inhalation (Spiriva Respimat) warfarin 4 mg tablet 4 mg PO WEEKLY 01/13/25 01/13/25 History Allergies Allergy/AdvReac Type Severity Reaction Status Date / Time No Known Allergies Allergy Verified 01/13/25 15:06 Vital Signs Vital Signs - 24 hr 01/13/25 15:11 01/13/25 16:40 01/13/25 16:46 Temperature 98.2 F Pulse Rate 130 H 90 83 Respiratory Rate 16 21 H 13 Blood Pressure 169/109 H 73/54 L 91/70 L Pulse Oximetry 100 95 94 01/13/25 16:50 01/13/25 16:55 01/13/25 17:00 Temperature Pulse Rate 96 62 63 Respiratory Rate 24 H 22 H 17 Blood Pressure Pulse Oximetry 93 95 93 01/13/25 17:02 01/13/25 17:27 01/13/25 17:30 Temperature Pulse Rate 59 L 78 90 Respiratory Rate 18 14 13 Blood Pressure 74/47 L 110/69 115/79 Pulse Oximetry 95 95 01/13/25 17:46 01/13/25 18:11 01/13/25 18:16 Temperature Pulse Rate 87 89 84 Respiratory Rate 15 12 12 Blood Pressure 131/74 116/79 Pulse Oximetry 98 93 95 01/13/25 18:31 Temperature Pulse Rate 82 Respiratory Rate 11 L Blood Pressure 115/83 Pulse Oximetry 97 Exam Const: General: comfortable and no acute distress Other: , male, nontoxic appearance HENMT: Face/Nose/Sinus: Normal nares present Mouth: Yes moist mucous membranes Eyes: General: appearance normal, both eyes and all related structures Sclera: sclerae normal Pupils: Equal, round and reactive pupils present EOM: EOMs intact bilaterally Resp: Effort & Inspection: normal respiratory effort Auscultation: clear to auscultation bilaterally Cardio: Rate: regular rate Rhythm: regular rhythm Other: S1-S2 present without murmur, rub, ectopy GI: Other: Abdomen soft, nondistended, nontender. Normoactive bowel sounds in all quadrants. : Other: No suprapubic tenderness at present. Three way Love catheter in place. Urinary Catheter: Urinary Catheter: patent and draining and urine pink Skin: General skin exam: normal color and no rashes or lesions noted Wounds: no wounds Neuro: Speech: normal speech Motor exam (neuro): 5/5 motor strength present throughout Sensory Exam: normal sensation Other: A&O x4 Extrem: General: normal to inspection Psych: Mental Status: mental status grossly normal Affect: normal affect Other: Good insight and judgment, pleasant H&P: Results Labs Labs: Short CBC 01/13/25 Range/Units 16:31 WBC 11.5 H (4.5-10.0) K/mm3 Hgb 14.3 (14.0-18.0) g/dL Hct 44.4 (42.0-52.0) % Plt Count 356 (150-375) k/mm3 BMP 01/13/25 16:31 Sodium 136 L Potassium 4.5 Chloride 105 Carbon Dioxide 19 L BUN 18 Creatinine 1.05 Glucose 119 H Calcium 9.2 Liver Function 01/13/25 Range/Units 16:31 Total Bilirubin 0.8 (0.2-1.3) mg/dL AST 44 (17-59) U/L ALT 56 H (6-50) U/L Alkaline Phosphatase 200 H (38-126) U/L Albumin 4.1 (3.5-5.1) g/dL Assessment and Plan Assessment and plan (1) Gross hematuria: Code(s): R31.0 - Gross hematuria Status: Acute Assessment and Plan: Gross hematuria with large clots causing urinary retention. Initial bladder scan showing greater than [address] 22Fr Love catheter placed for continuous bladder irrigation. Continue until clear. Hyoscyamine p.r.n. for bladder spasms. Urology consulted, agreed with plan. Hold warfarin, on chronic anticoagulation secondary to an aortic valve replacement. Recently bridged from warfarin to Lovenox for the TURBT procedure, last dose of Lovenox given today at noon. Trend WBC and renal function. (2) Acute urinary retention: Code(s): R33.8 - Other retention of urine Status: Acute Assessment and Plan: Love placed, see above. (3) Bladder cancer: Qualifiers: Bladder location: unspecified site Qualified Code(s): C67.9 - Malignant neoplasm of bladder, unspecified Code(s): C67.9 - Malignant neoplasm of bladder, unspecified Status: Acute Assessment and Plan: Recent TURBT on 01/10/2025 at [facility]). Pathology showed invasive poorly differentiated urothelial carcinoma. Will need outpatient follow-up for further treatment. Plan Diet: Regular GI Prophylaxis: Not currently indicated DVT Prophylaxis: SCDs, hold warfarin Lines: Peripheral Code Status: Full code Quality VTE Prophylaxis VTE prophylaxis: mechanical ordered If No VTE Prophylaxis Answer both mechanical and pharmacologic: Reason no pharmacologic proph: medical contraindication active bleeding/bleeding risk Hospitalist MIPS Advance Care Plan I have confirmed that the patient's Advanced Care Plan is present, code status is documented, or surrogate decision maker is listed in patient medical record.: Yes Medication Reconciliation I have utilized all available resources to obtain, update and review the patients current medications (includes all prescriptions, OTC, herbals, cannabis, and nutritional supplements).: Yes
--- NOTE | 2025-01-13 20:42 | PC.NURSE ---
Patient arrived via stretcher from ER accompanied by his spouse. The patient is AAOx4. He has a 3 way do intact and is doing continuous bladder irrigation. He was on bag #4 when brought up from the ER. He denies SOB, chest pain, and nausea. He also denies any complaints or concerns during this interview. He was instructed to use his call light for assistance. Patient agreed to use his call light for assistance. Patient was educated on the importance of wearing SCDs while in patient. Patient stated he understands the importance of SCDs during his hospital stay.
[2025-01-14] MEDS: HYDROcodone/acetaminophen (*CRX) 5-325 MG TABLET 1 TAB PO ×3 (00:19→13:10)
[2025-01-14] MEDS: HYOSCYAMINE SULFATE 0.125 MG TABLET SUBLINGUAL ×2 (05:01→10:31)
[2025-01-14 05:20] VITALS: BP 116/70; PULSE 77; RESP 18; TEMP 36.5; O2SAT 94
[2025-01-14 06:46] LABS: Basophils Percent Auto 0.3 % (0.2-1.2); Eosinophils Absolute Auto 0.1 K/mm3 (0-0.3); Eosinophils Percent Auto 0.8 % (0-4.4); Hematocrit 37.1 % (42.0-52.0); Hemoglobin 11.8 g/dL (14.0-18.0); Immature Granulocyte Absolute 0.08 K/mm3 (0.00-0.031); Immature Granulocyte Percent A 0.6 % (0-0.5); Lymphocytes Absolute Auto 1.44 K/mm3 (0.9-3.2); Lymphocytes Percent Auto 11.5 % (18.3-44.2); Mean Corpuscular HGB Conc 31.8 g/dl (32-36); Mean Corpuscular Hemoglobin 30.8 pg (26-34); Mean Corpuscular Volume 96.9 fl (80-100); Mean Platelet Volume 9.9 fl (7.4-10.4); Monocytes Absolute Auto 1.4 K/mm3 (0.1-0.6); Neutrophils Absolute Auto 9.5 K/mm3 (1.3-6.7); Neutrophils Percent Auto 75.8 % (45.5-73.1); Platelet Count Result 297 k/mm3 (150-375); Red Blood Count 3.83 M/mm3 (4.6-6.20); Red Cell Distribution Width 13.1 % (11.5-14.5); White Blood Count 12.5 K/mm3 (4.5-10.0)
[2025-01-14 07:02] LABS: Anion Gap 5 mmol/L (4-12); Blood Urea Nitrogen 16 mg/dL (9-20); Calcium 8.6 mg/dL (8.4-10.2); Carbon Dioxide 25 mmol/L (22-30); Chloride 106 mmol/L (98-107); Estimated CRCL calculation 73 ml/min; Estimated Glomerular Filt Rate > 60; Glucose 101 mg/dL (65-110); Potassium 4.3 mmol/L (3.4-5.0); Sodium 136 mmol/L (137-145)
--- NOTE | 2025-01-14 07:26 | P.PNIM_ITS ---
Progress Note: A&P Assessment and Plan (1) Gross hematuria: Code(s): R31.0 - Gross hematuria Status: Acute Assessment and Plan: * Gross hematuria w/ large close, causing retention * Initial BS: 400mL retention * 3-way [address] for continuous bladder irrigation * Urology consulted, appreciate further recommendations * Lovenox bridge for DVT prophylaxis per Urology * Maintain CBI * May consider switching Levsin to Ditropan if bladder spasms continue (2) Acute urinary retention: Code(s): R33.8 - Other retention of urine Status: Acute Assessment and Plan: * Do placed, see above. (3) Bladder cancer: Qualifiers: Bladder location: unspecified site Qualified Code(s): C67.9 - Malignant neoplasm of bladder, unspecified Code(s): C67.9 - Malignant neoplasm of bladder, unspecified Status: Acute Assessment and Plan: * Recent TURBT on 01/10/2025 at [facility]. Pathology showed invasive poorly differentiated urothelial carcinoma. * Will need outpatient follow-up for further treatment. (4) History of aortic valve replacement: Code(s): Z95.2 - Presence of prosthetic heart valve Status: Acute Assessment and Plan: * Hold warfarin * Lovenox bridge Plan Diet: Regular GI Prophylaxis: Not currently indicated DVT Prophylaxis: Lovenolx, SCDs, hold warfarin Lines: Peripheral Code Status: Full code Time Spent With Patient Time: 15- Subjective Date/time seen: 01/14/25 07:26 Interval history: 69-year- old patient presents here from home on 01/13 for further evaluation of acute urinary retention. He reports his last urination was 3 hours prior to arrival. 01/14/2025 Patient sitting very comfortably in bed at time of examination. He denies any chest pain, SOB, n/v, abdominal pain, headaches or dizziness. Do with irrigation still maintaining at this time. Urine color is red tinged but patient states it is more clear than it was yesterday. He currently denies any pain or complaints regarding the catheter at this time. Review of Systems Review of Systems: All systems reviewed & are unremarkable except as noted in HPI and below Exam Const: General: comfortable and no acute distress Other: , male, nontoxic appearance HENMT: Face/Nose/Sinus: Normal nares present Mouth: Yes moist mucous membranes Eyes: General: appearance normal, both eyes and all related structures Sclera: sclerae normal Pupils: Equal, round and reactive pupils present EOM: EOMs intact bilaterally Resp: Effort & Inspection: normal respiratory effort Auscultation: clear to auscultation bilaterally Cardio: Rate: regular rate Rhythm: regular rhythm Other: S1-S2 present without murmur, rub, ectopy GI: Other: Abdomen soft, nondistended, nontender. Normoactive bowel sounds in all quadrants. : Other: No suprapubic tenderness at present. Three way Do catheter in place. Urinary Catheter: Urinary Catheter: patent and draining and urine pink Skin: General skin exam: normal color and no rashes or lesions noted Wounds: no wounds Neuro: Cranial nerves: Yes Equal, round and reactive pupils present Speech: normal speech Motor exam (neuro): 5/5 motor strength present throughout Sensory Exam: normal sensation Other: A&O x4 Extrem: General: normal to inspection Psych: Mental Status: mental status grossly normal Affect: normal affect Other: Good insight and judgment, pleasant Objective Data Vital Signs Vital Signs: Vital Signs - 24 hr 01/13/25 15:11 01/13/25 16:40 01/13/25 16:46 Temperature 98.2 F Pulse Rate 130 H 90 83 Respiratory Rate 16 21 H 13 Blood Pressure 169/109 H 73/54 L 91/70 L Pulse Oximetry 100 95 94 01/13/25 16:50 01/13/25 16:55 01/13/25 17:00 Temperature Pulse Rate 96 62 63 Respiratory Rate 24 H 22 H 17 Blood Pressure Pulse Oximetry 93 95 93 01/13/25 17:02 01/13/25 17:27 01/13/25 17:30 Temperature Pulse Rate 59 L 78 90 Respiratory Rate 18 14 13 Blood Pressure 74/47 L 110/69 115/79 Pulse Oximetry 95 95 01/13/25 17:46 01/13/25 18:11 01/13/25 18:16 Temperature Pulse Rate 87 89 84 Respiratory Rate 15 12 12 Blood Pressure 131/74 116/79 Pulse Oximetry 98 93 95 01/13/25 18:31 01/13/25 21:40 01/14/25 05:20 Temperature 98.2 F 97.7 F Pulse Rate 82 94 77 Respiratory Rate 11 L 18 18 Blood Pressure 115/83 103/72 116/70 Pulse Oximetry 97 94 94 Intake/Output Intake/Output: Intake & Output 01/11/25 01/12/25 01/13/25 01/14/25 23:59 23:59 23:59 23:59 Intake Total 7500 950 Output Total 51329 Balance -4100 950 Meds/Results Medications: Active Medications Generic Name Dose Route Start Last Admin Trade Name Freq PRN Reason Stop Dose Admin Acetaminophen 650 mg 01/13/25 18:06 Acetaminophen 325 Mg Tablet PO Q4H PRN Mild Pain (1-3) or Fever Hydrocodone Bitart/Acetaminophen 1 tab 01/13/25 20:05 01/14/25 06:22 Hydrocodone/Acetaminophen (*Crx) 5-325 Mg Tablet PO 1 tab Q6H PRN Administration Pain Rated 4-6 Allopurinol 100 mg 01/14/25 09:00 Allopurinol 100 Mg Tablet PO DAILY [facility] Atorvastatin Calcium 80 mg 01/14/25 21:00 Atorvastatin 40 Mg Tablet PO QHS [facility] Hydromorphone HCl 0.5 mg 01/13/25 20:43 Hydromorphone Hcl Inj (*Crx) 1 Mg/Ml Syr IV PUSH Q3H PRN Pain Rated 7-10 Hyoscyamine 0.125 mg 01/13/25 17:08 01/14/25 05:01 Hyoscyamine Sulfate 0.125 Mg Tablet SUBLINGUAL 0.125 mg Q4H PRN Administration Bladder Spasm Ondansetron HCl 4 mg 01/13/25 18:06 Ondansetron Inj 4 Mg/2 Ml Vial IV PUSH Q4H PRN Nausea Fluticasone/Salmeterol 2 puff 01/14/25 08:00 Fluticasone/Salmeterol 230-21 Mcg Inhaler 1 Puff INHALATION Q12HRT [facility] Umeclidinium [place] 1 puff 01/14/25 08:00 Umeclidinium [place] 62.5 Mcg Ellipta INHALATION DAILYRT [facility] Labs Labs: Laboratory Results - last 24 hr 01/13/25 01/14/25 16:31 06:19 WBC 11.5 H 12.5 H RBC 4.68 3.83 L Hgb 14.3 11.8 L Hct 44.4 37.1 L MCV 94.9 96.9 MCH 30.6 30.8 MCHC 32.2 31.8 L RDW 12.9 13.1 Plt Count 356 297 MPV 9.8 9.9 Immature Gran % (Auto) 0.4 0.6 H Neut % (Auto) 81.4 H 75.8 H Lymph % (Auto) 9.8 L 11.5 L [place] % (Auto) 6.9 11.0 H Eos % (Auto) 0.9 0.8 Baso % (Auto) 0.6 0.3 Lymph # (Auto) 1.13 1.44 [place] # (Auto) 0.8 H 1.4 H Eos # (Auto) 0.1 0.1 Baso # (Auto) 0.1 0.0 Abs Immat Gran (auto) 0.05 H 0.08 H Absolute Neuts (auto) 9.4 H 9.5 H Absolute Nucleated RBC 0.000 0.000 Nucleated RBC % 0.0 0.0 PT 13.4 INR 1.0 APTT 25.8 Sodium 136 L 136 L Potassium 4.5 4.3 Chloride 105 106 Carbon Dioxide 19 L 25 Anion Gap 12 5 BUN 18 16 Creatinine 1.05 1.00 Estim Creat Clear Calc 72 73 Estimated GFR > 60 > 60 Glucose 119 H 101 Calcium 9.2 8.6 Total Bilirubin 0.8 AST 44 ALT 56 H Alkaline Phosphatase 200 H Total Protein 7.0 Albumin 4.1 Quality VTE Prophylaxis VTE prophylaxis: mechanical ordered and pharmacologic ordered
[2025-01-14 09:30] VITALS: O2SAT 92
--- NOTE | 2025-01-14 09:32 | PCRCNOTE ---
Pt. already took his Spiriva and Breo from home. R.N. aware, states will call the DrDane for and order and send the meds to pharmacy to be approved.
[2025-01-14] MEDS: allopurinoL 100 MG TABLET PO (10:31)
--- NOTE | 2025-01-14 12:44 | P.PNUR_ITS ---
Progress Note: A&P Assessment and Plan (1) Gross hematuria: Code(s): R31.0 - Gross hematuria Status: Acute Plan Given mechanical valve would restart lovenox bridge today and plan for a 5-7 day bridge before re-starting coumadin. Continue CBI for now, titrate to clear urine. Consider switching levsin to ditropan for bladder spasm with catheter in place. Subjective Subjective Date/Time Seen: 01/14/25 12:44 Interval history: NAEO, urine is pink lemonade consistency on light CBI. Exam Narrative: NAD, A&Ox3 RRR eWOB S/NT/ND CBI with pink lemonade on very slow drip, clears immediately. Objective Data Vital Signs Vital Signs: Vital Signs - 24 hr 01/13/25 15:11 01/13/25 16:40 01/13/25 16:46 Temperature 98.2 F Pulse Rate 130 H 90 83 Respiratory Rate 16 21 H 13 Blood Pressure 169/109 H 73/54 L 91/70 L Pulse Oximetry 100 95 94 Oxygen Delivery 01/13/25 16:50 01/13/25 16:55 01/13/25 17:00 Temperature Pulse Rate 96 62 63 Respiratory Rate 24 H 22 H 17 Blood Pressure Pulse Oximetry 93 95 93 Oxygen Delivery 01/13/25 17:02 01/13/25 17:27 01/13/25 17:30 Temperature Pulse Rate 59 L 78 90 Respiratory Rate 18 14 13 Blood Pressure 74/47 L 110/69 115/79 Pulse Oximetry 95 95 Oxygen Delivery 01/13/25 17:46 01/13/25 18:11 01/13/25 18:16 Temperature Pulse Rate 87 89 84 Respiratory Rate 15 12 12 Blood Pressure 131/74 116/79 Pulse Oximetry 98 93 95 Oxygen Delivery 01/13/25 18:31 01/13/25 21:40 01/14/25 05:20 Temperature 98.2 F 97.7 F Pulse Rate 82 94 77 Respiratory Rate 11 L 18 18 Blood Pressure 115/83 103/72 116/70 Pulse Oximetry 97 94 94 Oxygen Delivery 01/14/25 09:30 Temperature Pulse Rate Respiratory Rate Blood Pressure Pulse Oximetry 92 Oxygen Delivery Room Air Intake/Output Intake/Output: Intake & Output 01/11/25 01/12/25 01/13/25 01/14/25 23:59 23:59 23:59 23:59 Intake Total 7500 1670 Output Total 32851 35574 Balance -5069 -72907 Meds/Results Medications: Active Medications Generic Name Dose Route Start Last Admin Trade Name Freq PRN Reason Stop Dose Admin Acetaminophen 650 mg 01/13/25 18:06 Acetaminophen 325 Mg Tablet PO Q4H PRN Mild Pain (1-3) or Fever Hydrocodone Bitart/Acetaminophen 1 tab 01/13/25 20:05 01/14/25 06:22 Hydrocodone/Acetaminophen (*Crx) 5-325 Mg Tablet PO 1 tab Q6H PRN Administration Pain Rated 4-6 Allopurinol 100 mg 01/14/25 09:00 01/14/25 10:31 Allopurinol 100 Mg Tablet PO 100 mg DAILY [facility] Administration Atorvastatin Calcium 80 mg 01/14/25 21:00 Atorvastatin 40 Mg Tablet PO QHS [facility] Enoxaparin Sodium 40 mg 01/15/25 09:00 Enoxaparin 40 Mg/0.4 Ml Syringe SUB-Q DAILY [facility] Home Med 2 each 01/14/25 12:00 Home Medication-Spiriva INHALATION 02/13/25 11:59 DAILY [facility] Home Med 1 each 01/14/25 12:05 Home Medication-Breo Ellipta 200/25 INHALATION 02/13/25 12:04 DAILY [facility] Hydromorphone HCl 0.5 mg 01/13/25 20:43 Hydromorphone Hcl Inj (*Crx) 1 Mg/Ml Syr IV PUSH Q3H PRN Pain Rated 7-10 Hyoscyamine 0.125 mg 01/13/25 17:08 01/14/25 10:31 Hyoscyamine Sulfate 0.125 Mg Tablet SUBLINGUAL 0.125 mg Q4H PRN Administration Bladder Spasm Ondansetron HCl 4 mg 01/13/25 18:06 Ondansetron Inj 4 Mg/2 Ml Vial IV PUSH Q4H PRN Nausea Labs Labs: Laboratory Results - last 24 hr 01/13/25 01/14/25 16:31 06:19 WBC 11.5 H 12.5 H RBC 4.68 3.83 L Hgb 14.3 11.8 L Hct 44.4 37.1 L MCV 94.9 96.9 MCH 30.6 30.8 MCHC 32.2 31.8 L RDW 12.9 13.1 Plt Count 356 297 MPV 9.8 9.9 Immature Gran % (Auto) 0.4 0.6 H Neut % (Auto) 81.4 H 75.8 H Lymph % (Auto) 9.8 L 11.5 L [place] % (Auto) 6.9 11.0 H Eos % (Auto) 0.9 0.8 Baso % (Auto) 0.6 0.3 Lymph # (Auto) 1.13 1.44 [place] # (Auto) 0.8 H 1.4 H Eos # (Auto) 0.1 0.1 Baso # (Auto) 0.1 0.0 Abs Immat Gran (auto) 0.05 H 0.08 H Absolute Neuts (auto) 9.4 H 9.5 H Absolute Nucleated RBC 0.000 0.000 Nucleated RBC % 0.0 0.0 PT 13.4 INR 1.0 APTT 25.8 Sodium 136 L 136 L Potassium 4.5 4.3 Chloride 105 106 Carbon Dioxide 19 L 25 Anion Gap 12 5 BUN 18 16 Creatinine 1.05 1.00 Estim Creat Clear Calc 72 73 Estimated GFR > 60 > 60 Glucose 119 H 101 Calcium 9.2 8.6 Total Bilirubin 0.8 AST 44 ALT 56 H Alkaline Phosphatase 200 H Total Protein 7.0 Albumin 4.1
[2025-01-14] MEDS: ENOXAPARIN 40 MG/0.4 ML SYRINGE SUB-Q (13:10)
[2025-01-14 14:00] VITALS: BP 139/77; PULSE 73; RESP 18; TEMP 36.8; O2SAT 94
[2025-01-14] MEDS: oxyBUTYnin CHLORIDE XL 5 MG TAB.ER.24 PO (15:30)
[2025-01-14] MEDS: NACL 0.9% IRRIGATION POUR BOTTLE 500 ML (16:00)
[2025-01-14] MEDS: ATORVASTATIN 40 MG TABLET 80 MG PO (20:52)
[2025-01-14 21:29] VITALS: BP 107/54; PULSE 77; RESP 18; TEMP 36.5; O2SAT 92
[2025-01-15 06:00] VITALS: BP 104/55; PULSE 55; RESP 18; TEMP 35.8; O2SAT 94
--- NOTE | 2025-01-15 07:45 | P.PNIM_ITS ---
Progress Note: A&P Assessment and Plan (1) Gross hematuria: Code(s): R31.0 - Gross hematuria Status: Acute Assessment and Plan: * Gross hematuria w/ large close, causing retention * Initial BS: 400mL retention * 3-way [address] for continuous bladder irrigation * Urology consulted, appreciate further recommendations * Maintain CBI * May consider switching Levsin to Ditropan if bladder spasms continue * Heparin drip initiated * Monitor INR (2) Acute urinary retention: Code(s): R33.8 - Other retention of urine Status: Acute Assessment and Plan: * Od placed, see above. (3) Bladder cancer: Qualifiers: Bladder location: unspecified site Qualified Code(s): C67.9 - Malignant neoplasm of bladder, unspecified Code(s): C67.9 - Malignant neoplasm of bladder, unspecified Status: Acute Assessment and Plan: * Recent TURBT on 01/10/2025 at [facility]. Pathology showed invasive poorly differentiated urothelial carcinoma. * Will need outpatient follow-up for further treatment. (4) History of aortic valve replacement: Code(s): Z95.2 - Presence of prosthetic heart valve Status: Acute Assessment and Plan: * Hold warfarin * Heparin Drip Plan Diet: Regular GI Prophylaxis: Not currently indicated DVT Prophylaxis: SCDs, hold warfarin Lines: Peripheral Code Status: Full code Time Spent With Patient Time: Subjective Date/time seen: 01/15/25 07:45 Interval history: 69-year- old patient presents here from home on 01/13 for further evaluation of acute urinary retention. He reports his last urination was 3 hours prior to arrival. 01/15/2025 Patient sitting comfortably in bed at time of examination. He currently denies any chest pain, n/v, abdominal pain, or shortness of breath at this time. Urology continues to follow at this time. Recommend void trial tomorrow if urine continues to be clear or very slow on clamped CBI. Catheter did require irrigation twice with small clots found in bag. Will start on Heparin drip for now with plan to place on Lovenox upon discharge before restarted Coumadin. Otherwise vitals, CBC and CMP are stable. INR 1.0, repeat daily. Review of Systems Review of Systems: All systems reviewed & are unremarkable except as noted in HPI and below Exam Const: General: comfortable and no acute distress Other: , male, nontoxic appearance HENMT: Face/Nose/Sinus: Normal nares present Mouth: Yes moist mucous membranes Eyes: General: appearance normal, both eyes and all related structures Sclera: sclerae normal Pupils: Equal, round and reactive pupils present EOM: EOMs intact bilaterally Resp: Effort & Inspection: normal respiratory effort Auscultation: clear to auscultation bilaterally Cardio: Rate: regular rate Rhythm: regular rhythm Other: S1-S2 present without murmur, rub, ectopy GI: Other: Abdomen soft, nondistended, nontender. Normoactive bowel sounds in all quadrants. : Other: No suprapubic tenderness at present. Three way Do catheter in place. Urinary Catheter: Urinary Catheter: patent and draining and urine pink Skin: General skin exam: normal color and no rashes or lesions noted Wounds: no wounds Neuro: Cranial nerves: Yes Equal, round and reactive pupils present Speech: normal speech Motor exam (neuro): 5/5 motor strength present throughout Sensory Exam: normal sensation Other: A&O x4 Extrem: General: normal to inspection Psych: Mental Status: mental status grossly normal Affect: normal affect Other: Good insight and judgment, pleasant Objective Data Vital Signs Vital Signs: Vital Signs - 24 hr 01/14/25 08:00 01/14/25 09:30 01/14/25 14:00 Temperature 98.2 F Pulse Rate 73 Respiratory Rate 18 Blood Pressure 139/77 Pulse Oximetry 92 94 Oxygen Delivery Room Air Room Air 01/14/25 20:52 01/14/25 21:29 01/15/25 06:00 Temperature 97.7 F 96.4 F L Pulse Rate 77 55 L Respiratory Rate 18 18 Blood Pressure 107/54 L 104/55 L Pulse Oximetry 92 94 Oxygen Delivery Room Air Intake/Output Intake/Output: Intake & Output 01/12/25 01/13/25 01/14/25 01/15/25 23:59 23:59 23:59 23:59 Intake Total 7500 3410 300 Output Total 90909 86945 Balance -4100 -82429 300 Meds/Results Medications: Active Medications Generic Name Dose Route Start Last Admin Trade Name Freq PRN Reason Stop Dose Admin Acetaminophen 650 mg 01/13/25 18:06 Acetaminophen 325 Mg Tablet PO Q4H PRN Mild Pain (1-3) or Fever Hydrocodone Bitart/Acetaminophen 1 tab 01/13/25 20:05 01/14/25 13:10 Hydrocodone/Acetaminophen (*Crx) 5-325 Mg Tablet PO 1 tab Q6H PRN Administration Pain Rated 4-6 Allopurinol 100 mg 01/14/25 09:00 01/14/25 10:31 Allopurinol 100 Mg Tablet PO 100 mg DAILY [facility] Administration Atorvastatin Calcium 80 mg 01/14/25 21:00 01/14/25 20:52 Atorvastatin 40 Mg Tablet PO 80 mg QHS [facility] Administration Enoxaparin Sodium 40 mg 01/14/25 13:00 01/14/25 13:10 Enoxaparin 40 Mg/0.4 Ml Syringe SUB-Q 40 mg DAILY [facility] Administration Home Med 2 each 01/14/25 12:00 01/14/25 12:52 Home Medication-Spiriva INHALATION 02/13/25 11:59 Not Given DAILY [facility] Home Med 1 each 01/14/25 12:05 01/14/25 12:52 Home Medication-Breo Ellipta /25 INHALATION 02/13/25 12:04 Not Given DAILY [facility] Hydromorphone HCl 0.5 mg 01/13/25 20:43 Hydromorphone Hcl Inj (*Crx) 1 Mg/Ml Syr IV PUSH Q3H PRN Pain Rated 7-10 Hyoscyamine 0.125 mg 01/13/25 17:08 01/14/25 10:31 Hyoscyamine Sulfate 0.125 Mg Tablet SUBLINGUAL 0.125 mg Q4H PRN Administration Bladder Spasm Ondansetron HCl 4 mg 01/13/25 18:06 Ondansetron Inj 4 Mg/2 Ml Vial IV PUSH Q4H PRN Nausea Oxybutynin Chloride 5 mg 01/14/25 15:10 01/14/25 15:30 Oxybutynin Chloride Xl 5 Mg Tab.Er.24 PO 5 mg QAM [facility] Administration Quality VTE Prophylaxis VTE prophylaxis: mechanical ordered and pharmacologic ordered
[2025-01-15] MEDS: BREO ELLIPTA 1 EACH INHALATION (07:57)
[2025-01-15] MEDS: SPIRIVA 2 EACH INHALATION (07:57)
[2025-01-15 07:58] VITALS: PULSE 87; RESP 20; O2SAT 99
[2025-01-15 08:10] LABS: Basophils Absolute Auto 0.1 K/mm3 (0.0-0.1); Basophils Percent Auto 0.5 % (0.2-1.2); Eosinophils Absolute Auto 0.2 K/mm3 (0-0.3); Eosinophils Percent Auto 1.7 % (0-4.4); Hematocrit 36.5 % (42.0-52.0); Hemoglobin 11.7 g/dL (14.0-18.0); Immature Granulocyte Absolute 0.06 K/mm3 (0.00-0.031); Immature Granulocyte Percent A 0.5 % (0-0.5); Lymphocytes Absolute Auto 1.61 K/mm3 (0.9-3.2); Mean Corpuscular HGB Conc 32.1 g/dl (32-36); Mean Corpuscular Hemoglobin 30.6 pg (26-34); Mean Corpuscular Volume 95.5 fl (80-100); Mean Platelet Volume 9.7 fl (7.4-10.4); Monocytes Percent Auto 8.8 % (2.6-8.5); Neutrophils Absolute Auto 8.6 K/mm3 (1.3-6.7); Neutrophils Percent Auto 74.5 % (45.5-73.1); Platelet Count Result 277 k/mm3 (150-375); Red Blood Count 3.82 M/mm3 (4.6-6.20); Red Cell Distribution Width 13.1 % (11.5-14.5); White Blood Count 11.5 K/mm3 (4.5-10.0)
[2025-01-15 08:19] LABS: Alanine Aminotransferase 38 U/L (6-50); Albumin Level 3.7 g/dL (3.5-5.1); Alkaline Phosphatase 153 U/L (38-126); Anion Gap 6 mmol/L (4-12); Aspartate Amino Transferase 27 U/L (17-59); Bilirubin,Total 0.7 mg/dL (0.2-1.3); Blood Urea Nitrogen 12 mg/dL (9-20); Calcium 8.6 mg/dL (8.4-10.2); Carbon Dioxide 25 mmol/L (22-30); Chloride 106 mmol/L (98-107); Estimated CRCL calculation 84 ml/min; Estimated Glomerular Filt Rate > 60; Glucose 114 mg/dL (65-110); Potassium 4.1 mmol/L (3.4-5.0); Sodium 137 mmol/L (137-145)
[2025-01-15] MEDS: allopurinoL 100 MG TABLET PO (08:44)
[2025-01-15] MEDS: oxyBUTYnin CHLORIDE XL 5 MG TAB.ER.24 PO (08:44)
[2025-01-15] MEDS: NACL 0.9% IRRIGATION POUR BOTTLE 500 ML (09:50)
--- NOTE | 2025-01-15 12:39 | WPDUROPN2 ---
Progress Note: A&P Assessment and Plan (1) Gross hematuria: Code(s): R31.0 - Gross hematuria Status: Acute Plan Given mechanical valve would restart lovenox bridge today and plan for a 5-7 day bridge before re-starting coumadin. Will defer dosing to hospital medicine and pharmacy. If urine continues to be clear on very slow or clamped CBI, consider trial of void tomorrow. Continue CBI for now, titrate to clear urine. Consider switching levsin to ditropan for bladder spasm with catheter in place. Subjective Subjective Date/Time Seen: 01/15/25 12:39 Interval history: NAEO, catheter required irrigation twice, relatively small clots. Otherwise doing well. Exam Narrative: NAD, A&Ox3 Warm Dry extremities, 2+DP eWOB S/NT/ND CBI slow drip with clear output. Objective Data Vital Signs Vital Signs: Vital Signs - 24 hr 01/14/25 14:00 01/14/25 20:52 01/14/25 21:29 Temperature 98.2 F 97.7 F Pulse Rate 73 77 Respiratory Rate 18 18 Blood Pressure 139/77 107/54 L Pulse Oximetry 94 92 Oxygen Delivery Room Air 01/15/25 06:00 01/15/25 07:58 01/15/25 07:58 Temperature 96.4 F L Pulse Rate 55 L 87 Respiratory Rate 18 20 Blood Pressure 104/55 L Pulse Oximetry 94 99 Oxygen Delivery Room Air 01/15/25 08:15 Temperature Pulse Rate Respiratory Rate Blood Pressure Pulse Oximetry Oxygen Delivery Room Air Intake/Output Intake/Output: Intake & Output 01/12/25 01/13/25 01/14/25 01/15/25 23:59 23:59 23:59 23:59 Intake Total 7500 3410 540 Output Total 61926 75279 Balance -4100 -27996 540 Meds/Results Medications: Active Medications Generic Name Dose Route Start Last Admin Trade Name Freq PRN Reason Stop Dose Admin Acetaminophen 650 mg 01/13/25 18:06 Acetaminophen 325 Mg Tablet PO Q4H PRN Mild Pain (1-3) or Fever Hydrocodone Bitart/Acetaminophen 1 tab 01/13/25 20:05 01/14/25 13:10 Hydrocodone/Acetaminophen (*Crx) 5-325 Mg Tablet PO 1 tab Q6H PRN Administration Pain Rated 4-6 Allopurinol 100 mg 01/14/25 09:00 01/15/25 08:44 Allopurinol 100 Mg Tablet PO 100 mg DAILY [facility] Administration Atorvastatin Calcium 80 mg 01/14/25 21:00 01/14/25 20:52 Atorvastatin 40 Mg Tablet PO 80 mg QHS [facility] Administration Enoxaparin Sodium 40 mg 01/14/25 13:00 01/14/25 13:10 Enoxaparin 40 Mg/0.4 Ml Syringe SUB-Q 40 mg DAILY [facility] Administration Home Med 2 each 01/14/25 12:00 01/15/25 07:57 Home Medication-Spiriva INHALATION 02/13/25 11:59 2 each DAILY [facility] Administration Home Med 1 each 01/14/25 12:05 01/15/25 07:57 Home Medication-Breo Ellipta INHALATION 02/13/25 12:04 1 each DAILY [facility] Administration Hydromorphone HCl 0.5 mg 01/13/25 20:43 Hydromorphone Hcl Inj (*Crx) 1 Mg/Ml Syr IV PUSH Q3H PRN Pain Rated 7-10 Hyoscyamine 0.125 mg 01/13/25 17:08 01/14/25 10:31 Hyoscyamine Sulfate 0.125 Mg Tablet SUBLINGUAL 0.125 mg Q4H PRN Administration Bladder Spasm Ondansetron HCl 4 mg 01/13/25 18:06 Ondansetron Inj 4 Mg/2 Ml Vial IV PUSH Q4H PRN Nausea Oxybutynin Chloride 5 mg 01/14/25 15:10 01/15/25 08:44 Oxybutynin Chloride Xl 5 Mg Tab.Er.24 PO 5 mg QAM [facility] Administration Labs Labs: Laboratory Results - last 24 hr 01/15/25 08:00 WBC 11.5 H RBC 3.82 L Hgb 11.7 L Hct 36.5 L MCV 95.5 MCH 30.6 MCHC 32.1 RDW 13.1 Plt Count 277 MPV 9.7 Immature Gran % (Auto) 0.5 Neut % (Auto) 74.5 H Lymph % (Auto) 14.0 L [place] % (Auto) 8.8 H Eos % (Auto) 1.7 Baso % (Auto) 0.5 Lymph # (Auto) 1.61 [place] # (Auto) 1.0 H Eos # (Auto) 0.2 Baso # (Auto) 0.1 Abs Immat Gran (auto) 0.06 H Absolute Neuts (auto) 8.6 H Absolute Nucleated RBC 0.000 Nucleated RBC % 0.0 Sodium 137 Potassium 4.1 Chloride 106 Carbon Dioxide 25 Anion Gap 6 BUN 12 Creatinine 0.87 Estim Creat Clear Calc 84 Estimated GFR > 60 Glucose 114 H Calcium 8.6 Total Bilirubin 0.7 AST 27 ALT 38 Alkaline Phosphatase 153 H Total Protein 7.0 Albumin 3.7
[2025-01-15 13:36] LABS: Basophils Absolute Auto 0.1 K/mm3 (0.0-0.1); Basophils Percent Auto 0.4 % (0.2-1.2); Eosinophils Absolute Auto 0.2 K/mm3 (0-0.3); Eosinophils Percent Auto 1.4 % (0-4.4); Hematocrit 37.9 % (42.0-52.0); Hemoglobin 12.1 g/dL (14.0-18.0); Immature Granulocyte Absolute 0.07 K/mm3 (0.00-0.031); Immature Granulocyte Percent A 0.6 % (0-0.5); Lymphocytes Absolute Auto 1.54 K/mm3 (0.9-3.2); Lymphocytes Percent Auto 12.2 % (18.3-44.2); Mean Corpuscular HGB Conc 31.9 g/dl (32-36); Mean Corpuscular Volume 97.2 fl (80-100); Monocytes Percent Auto 7.9 % (2.6-8.5); Neutrophils Absolute Auto 9.8 K/mm3 (1.3-6.7); Neutrophils Percent Auto 77.5 % (45.5-73.1); Platelet Count Result 299 k/mm3 (150-375); Red Cell Distribution Width 13.2 % (11.5-14.5); White Blood Count 12.7 K/mm3 (4.5-10.0)
[2025-01-15 13:54] LABS: Partial Thromboplastin Time 25.1 Seconds (22.3-36.8); Prothrombin Time 13.6 Seconds (11.1-14.7)
[2025-01-15 14:00] VITALS: BP 118/72; PULSE 88; RESP 18; TEMP 36.8; O2SAT 94
[2025-01-15] MEDS: HEPARIN SOD/D5W 100 UNITS/ML 25,000 UNITS/250 ML BAG 15 UNITS IV CONT (14:16)
[2025-01-15] MEDS: polyethylene glycoL 3350 17 GM POWD.PACK PO (18:16)
[2025-01-15 20:35] LABS: Partial Thromboplastin Time 43.1 Seconds (22.3-36.8)
[2025-01-15] MEDS: HEPARIN SODIUM 5,000 UNITS/ML VIAL 6500 UNITS IV PUSH (21:28)
[2025-01-15] MEDS: ATORVASTATIN 40 MG TABLET 80 MG PO (21:40)
[2025-01-15 21:56] VITALS: BP 117/67; PULSE 63; RESP 16; TEMP 36.1; O2SAT 96
[2025-01-16 03:52] LABS: Basophils Absolute Auto 0.1 K/mm3 (0.0-0.1); Basophils Percent Auto 0.6 % (0.2-1.2); Eosinophils Absolute Auto 0.3 K/mm3 (0-0.3); Eosinophils Percent Auto 2.4 % (0-4.4); Hematocrit 35.5 % (42.0-52.0); Hemoglobin 11.1 g/dL (14.0-18.0); Immature Granulocyte Absolute 0.06 K/mm3 (0.00-0.031); Immature Granulocyte Percent A 0.6 % (0-0.5); Lymphocytes Absolute Auto 1.84 K/mm3 (0.9-3.2); Lymphocytes Percent Auto 17.9 % (18.3-44.2); Mean Corpuscular HGB Conc 31.3 g/dl (32-36); Mean Corpuscular Hemoglobin 30.7 pg (26-34); Mean Corpuscular Volume 98.3 fl (80-100); Mean Platelet Volume 9.8 fl (7.4-10.4); Monocytes Percent Auto 10.1 % (2.6-8.5); Neutrophils Percent Auto 68.4 % (45.5-73.1); Platelet Count Result 262 k/mm3 (150-375); Red Blood Count 3.61 M/mm3 (4.6-6.20); Red Cell Distribution Width 13.1 % (11.5-14.5); White Blood Count 10.3 K/mm3 (4.5-10.0)
[2025-01-16 04:07] LABS: Alanine Aminotransferase 40 U/L (6-50); Albumin Level 3.5 g/dL (3.5-5.1); Alkaline Phosphatase 159 U/L (38-126); Anion Gap 7 mmol/L (4-12); Aspartate Amino Transferase 29 U/L (17-59); Bilirubin,Total 0.6 mg/dL (0.2-1.3); Blood Urea Nitrogen 12 mg/dL (9-20); Calcium 8.5 mg/dL (8.4-10.2); Carbon Dioxide 27 mmol/L (22-30); Chloride 105 mmol/L (98-107); Estimated CRCL calculation 79 ml/min; Estimated Glomerular Filt Rate > 60; Glucose 106 mg/dL (65-110); Potassium 4.2 mmol/L (3.4-5.0); Prothrombin Time 13.9 Seconds (11.1-14.7); Sodium 139 mmol/L (137-145)
[2025-01-16 04:10] LABS: Partial Thromboplastin Time 134.8 Seconds (22.3-36.8)
[2025-01-16 05:41] VITALS: BP 113/65; PULSE 63; RESP 16; TEMP 36; O2SAT 95
[2025-01-16] MEDS: HEPARIN SOD/D5W 100 UNITS/ML 25,000 UNITS/250 ML BAG 15 UNITS IV CONT (06:51)
[2025-01-16] MEDS: BREO ELLIPTA 1 EACH INHALATION (07:59)
[2025-01-16] MEDS: SPIRIVA 2 EACH INHALATION (07:59)
[2025-01-16 08:01] VITALS: PULSE 62; RESP 20; O2SAT 95
[2025-01-16] MEDS: allopurinoL 100 MG TABLET PO (09:17)
[2025-01-16] MEDS: oxyBUTYnin CHLORIDE XL 5 MG TAB.ER.24 PO (09:17)
[2025-01-16 11:21] LABS: Partial Thromboplastin Time 48.8 Seconds (22.3-36.8)
--- NOTE | 2025-01-16 12:15 | WPDUROPN2 ---
Progress Note: A&P Assessment and Plan (1) Gross hematuria: Code(s): R31.0 - Gross hematuria Status: Acute (2) On continuous oral anticoagulation: Code(s): Z79.01 - longterm (current) use of anticoagulants Status: Acute Plan I irrigated bladder personally. There was no large clots. CBI is running to very light tea color. Continues on heparin drip. 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 Nursing irrigated his catheter this morning and got some small clots. I irrigated myself and got no clots. His urine is a light tea colored on very slow continuous bladder irrigation Exam Narrative: Love catheter in place. Tea-colored urine on slow continuous bladder irrigation Objective Data Vital Signs Vital Signs: Vital Signs - 24 hr 01/15/25 14:00 01/15/25 21:30 01/15/25 21:56 Temperature 98.2 F 97.0 F L Pulse Rate 88 63 Respiratory Rate 18 16 Blood Pressure 118/72 117/67 Pulse Oximetry 94 96 Oxygen Delivery Room Air 01/16/25 05:41 01/16/25 08:01 01/16/25 08:01 Temperature 96.8 F L Pulse Rate 63 62 62 Respiratory Rate 16 20 20 Blood Pressure 113/65 Pulse Oximetry 95 95 Oxygen Delivery Room Air Intake/Output Intake/Output: Intake & Output 01/13/25 01/14/25 01/15/25 01/16/25 23:59 23:59 23:59 23:59 Intake Total 7500 3410 2628.5 461.3 Output Total 84322 39698 94364 [id number] [id number] -[id number] -16403.5 -80030.7 Meds/Results Medications: Active Medications Generic Name Dose Route Start Last Admin Trade Name Freq PRN Reason Stop Dose Admin Acetaminophen 650 mg 01/13/25 18:06 Acetaminophen 325 Mg Tablet PO Q4H PRN Mild Pain (1-3) or Fever Hydrocodone Bitart/Acetaminophen 1 tab 01/13/25 20:05 01/14/25 13:10 Hydrocodone/Acetaminophen (*Crx) 5-325 Mg Tablet PO 1 tab Q6H PRN Administration Pain Rated 4-6 Allopurinol 100 mg 01/14/25 09:00 01/16/25 09:17 Allopurinol 100 Mg Tablet PO 100 mg DAILY [facility] Administration Atorvastatin Calcium 80 mg 01/14/25 21:00 01/15/25 21:40 Atorvastatin 40 Mg Tablet PO 80 mg QHS [facility] Administration Heparin Sodium (Porcine) 6,500 units 01/15/25 13:02 01/15/25 21:28 Heparin Sodium 5,000 Units/Ml Vial IV PUSH 6,500 units PRN PRN Administration aPTT less than 55 seconds Heparin Sodium (Porcine) 3,500 units 01/15/25 13:02 Heparin Sodium 5,000 Units/Ml Vial IV PUSH PRN PRN aPTT 55 - 70 seconds Home Med 2 each 01/14/25 12:00 01/16/25 07:59 Home Medication-Spiriva INHALATION 02/13/25 11:59 2 each DAILY [facility] Administration Home Med 1 each 01/14/25 12:05 01/16/25 07:59 Home Medication-Breo Ellipta 200/25 INHALATION 02/13/25 12:04 1 each DAILY [facility] Administration Hydromorphone HCl 0.5 mg 01/13/25 20:43 Hydromorphone Hcl Inj (*Crx) 1 Mg/Ml Syr IV PUSH Q3H PRN Pain Rated 7-10 Hyoscyamine 0.125 mg 01/13/25 17:08 01/14/25 10:31 Hyoscyamine Sulfate 0.125 Mg Tablet SUBLINGUAL 0.125 mg Q4H PRN Administration Bladder Spasm Heparin Sodium/Dextrose 25,000 units in 250 mls @ 18 mls/hr 01/15/25 13:25 01/16/25 11:30 Heparin Sodium/D5w 100 Units/Ml IV CONT 1,800 units/hr .[id number] TIFFANY 18 mls/hr Titration Protocol 1,800 UNITS/HR Ondansetron HCl 4 mg 01/13/25 18:06 Ondansetron Inj 4 Mg/2 Ml Vial IV PUSH Q4H PRN Nausea Oxybutynin Chloride 5 mg 01/14/25 15:10 01/16/25 09:17 Oxybutynin Chloride Xl 5 Mg Tab.Er.24 PO 5 mg QAM [facility] Administration Polyethylene Glycol 17 gm 01/15/25 16:19 01/15/25 18:16 Polyethylene Glycol 3350 17 Gm Powd.Pack PO 17 gm DAILY PRN Administration Constipation Labs Labs: Laboratory Results - last 24 hr 01/15/25 01/15/25 01/15/25 13:18 13:19 19:55 WBC 12.7 H RBC 3.90 L Hgb 12.1 L Hct 37.9 L MCV 97.2 MCH 31.0 MCHC 31.9 L RDW 13.2 Plt Count 299 MPV 10.0 Immature Gran % (Auto) 0.6 H Neut % (Auto) 77.5 H Lymph % (Auto) 12.2 L [place] % (Auto) 7.9 Eos % (Auto) 1.4 Baso % (Auto) 0.4 Lymph # (Auto) 1.54 [place] # (Auto) 1.0 H Eos # (Auto) 0.2 Baso # (Auto) 0.1 Abs Immat Gran (auto) 0.07 H Absolute Neuts (auto) 9.8 H Absolute Nucleated RBC 0.000 Nucleated RBC % 0.0 PT 13.6 INR 1.0 APTT 25.1 43.1 H Sodium Potassium Chloride Carbon Dioxide Anion Gap BUN Creatinine Estim Creat Clear Calc Estimated GFR Glucose Calcium Total Bilirubin AST ALT Alkaline Phosphatase Total Protein Albumin 01/16/25 01/16/25 03:38 10:59 WBC 10.3 H RBC 3.61 L Hgb 11.1 L Hct 35.5 L MCV 98.3 MCH 30.7 MCHC 31.3 L RDW 13.1 Plt Count 262 MPV 9.8 Immature Gran % (Auto) 0.6 H Neut % (Auto) 68.4 Lymph % (Auto) 17.9 L [place] % (Auto) 10.1 H Eos % (Auto) 2.4 Baso % (Auto) 0.6 Lymph # (Auto) 1.84 [place] # (Auto) 1.0 H Eos # (Auto) 0.3 Baso # (Auto) 0.1 Abs Immat Gran (auto) 0.06 H Absolute Neuts (auto) 7.0 H Absolute Nucleated RBC 0.000 Nucleated RBC % 0.0 PT 13.9 INR 1.0 APTT 134.8 H 48.8 H Sodium 139 Potassium 4.2 Chloride 105 Carbon Dioxide 27 Anion Gap 7 BUN 12 Creatinine 0.93 Estim Creat Clear Calc 79 Estimated GFR > 60 Glucose 106 Calcium 8.5 Total Bilirubin 0.6 AST 29 ALT 40 Alkaline Phosphatase 159 H Total Protein 6.0 L Albumin 3.5
--- NOTE | 2025-01-16 12:33 | P.PNIM_ITS ---
Progress Note: A&P Assessment and Plan (1) Gross hematuria: Code(s): R31.0 - Gross hematuria Status: Acute Assessment and Plan: * Gross hematuria w/ large close, causing retention * Initial BS: 400mL retention * 3-way [address] for continuous bladder irrigation * Urology consulted, appreciate further recommendations * Maintain CBI * Switched Ditropan for bladder spasms * Heparin drip initiated * Monitor INR (2) Acute urinary retention: Code(s): R33.8 - Other retention of urine Status: Acute Assessment and Plan: * Do placed, see above. (3) Bladder cancer: Qualifiers: Bladder location: unspecified site Qualified Code(s): C67.9 - Malignant neoplasm of bladder, unspecified Code(s): C67.9 - Malignant neoplasm of bladder, unspecified Status: Acute Assessment and Plan: * Recent TURBT on 01/10/2025 at [facility]. Pathology showed invasive poorly differentiated urothelial carcinoma. * Will need outpatient follow-up for further treatment. 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 He reports his last urination was 3 hours prior to arrival. 01/16/2025 Patient sitting comfortably in bed at time of examination. He currently denies any chest pain, n/v, abdominal pain, or shortness of breath at this time. Urology continues to follow at this time. Urology irrigated the do with no production of clots. CBI continues to clear up, now light tea color. Will attempt removal of do tomorrow with void trial. 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 Pending ultrasound of the bladder. Review of Systems Review of Systems: All systems reviewed & are unremarkable except as noted in HPI and below Exam Const: General: comfortable and no acute distress Other: , male, nontoxic appearance HENMT: Face/Nose/Sinus: Normal nares present Mouth: Yes moist mucous membranes Eyes: General: appearance normal, both eyes and all related structures Sclera: sclerae normal Pupils: Equal, round and reactive pupils present EOM: EOMs intact bilaterally Resp: Effort & Inspection: normal respiratory effort Auscultation: clear to auscultation bilaterally Cardio: Rate: regular rate Rhythm: regular rhythm Other: S1-S2 present without murmur, rub, ectopy GI: Other: Abdomen soft, nondistended, nontender. Normoactive bowel sounds in all quadrants. : Other: No suprapubic tenderness at present. Three way Do catheter in place. Urinary Catheter: Urinary Catheter: patent and draining and urine pink Skin: General skin exam: normal color and no rashes or lesions noted Wounds: no wounds Neuro: Cranial nerves: Yes Equal, round and reactive pupils present Speech: normal speech Motor exam (neuro): 5/5 motor strength present throughout Sensory Exam: normal sensation Other: A&O x4 Extrem: General: normal to inspection Psych: Mental Status: mental status grossly normal Affect: normal affect Other: Good insight and judgment, pleasant Objective Data Vital Signs Vital Signs: Vital Signs - 24 hr 01/15/25 14:00 01/15/25 21:30 01/15/25 21:56 Temperature 98.2 F 97.0 F L Pulse Rate 88 63 Respiratory Rate 18 16 Blood Pressure 118/72 117/67 Pulse Oximetry 94 96 Oxygen Delivery Room Air 01/16/25 05:41 01/16/25 08:01 01/16/25 08:01 Temperature 96.8 F L Pulse Rate 63 62 62 Respiratory Rate 16 20 20 Blood Pressure 113/65 Pulse Oximetry 95 95 Oxygen Delivery Room Air Intake/Output Intake/Output: Intake & Output 01/13/25 01/14/25 01/15/25 01/16/25 23:59 23:59 23:59 23:59 Intake Total 7500 3410 2628.5 461.3 Output Total 97284 96244 16416 [id number] [id number] -25290 -90501.5 -61055.7 Meds/Results Medications: Active Medications Generic Name Dose Route Start Last Admin Trade Name Freq PRN Reason Stop Dose Admin Acetaminophen 650 mg 01/13/25 18:06 Acetaminophen 325 Mg Tablet PO Q4H PRN Mild Pain (1-3) or Fever Hydrocodone Bitart/Acetaminophen 1 tab 01/13/25 20:05 01/14/25 13:10 Hydrocodone/Acetaminophen (*Crx) 5-325 Mg Tablet PO 1 tab Q6H PRN Administration Pain Rated 4-6 Allopurinol 100 mg 01/14/25 09:00 01/16/25 09:17 Allopurinol 100 Mg Tablet PO 100 mg DAILY [facility] Administration Atorvastatin Calcium 80 mg 01/14/25 21:00 01/15/25 21:40 Atorvastatin 40 Mg Tablet PO 80 mg QHS [facility] Administration Heparin Sodium (Porcine) 6,500 units 01/15/25 13:02 01/15/25 21:28 Heparin Sodium 5,000 Units/Ml Vial IV PUSH 6,500 units PRN PRN Administration aPTT less than 55 seconds Heparin Sodium (Porcine) 3,500 units 01/15/25 13:02 Heparin Sodium 5,000 Units/Ml Vial IV PUSH PRN PRN aPTT 55 - 70 seconds Home Med 2 each 01/14/25 12:00 01/16/25 07:59 Home Medication-Spiriva INHALATION 02/13/25 11:59 2 each DAILY [facility] Administration Home Med 1 each 01/14/25 12:05 01/16/25 07:59 Home Medication-Breo Ellipta /25 INHALATION 02/13/25 12:04 1 each DAILY [facility] Administration Hydromorphone HCl 0.5 mg 01/13/25 20:43 Hydromorphone Hcl Inj (*Crx) 1 Mg/Ml Syr IV PUSH Q3H PRN Pain Rated 7-10 Hyoscyamine 0.125 mg 01/13/25 17:08 01/14/25 10:31 Hyoscyamine Sulfate 0.125 Mg Tablet SUBLINGUAL 0.125 mg Q4H PRN Administration Bladder Spasm Heparin Sodium/Dextrose 25,000 units in 250 mls @ 18 mls/hr 01/15/25 13:25 01/16/25 11:30 Heparin Sodium/D5w 100 Units/Ml IV CONT 1,800 units/hr .[id number] TIFF[facility] 18 mls/hr Titration Protocol 1,800 UNITS/HR Ondansetron HCl 4 mg 01/13/25 18:06 Ondansetron Inj 4 Mg/2 Ml Vial IV PUSH Q4H PRN Nausea Oxybutynin Chloride 5 mg 01/14/25 15:10 01/16/25 09:17 Oxybutynin Chloride Xl 5 Mg Tab.Er.24 PO 5 mg QAM [facility] Administration Polyethylene Glycol 17 gm 01/15/25 16:19 01/15/25 18:16 Polyethylene Glycol 3350 17 Gm Powd.Pack PO 17 gm DAILY PRN Administration Constipation Labs Labs: Laboratory Results - last 24 hr 01/15/25 01/15/25 01/15/25 13:18 13:19 19:55 WBC 12.7 H RBC 3.90 L Hgb 12.1 L Hct 37.9 L MCV 97.2 MCH 31.0 MCHC 31.9 L RDW 13.2 Plt Count 299 MPV 10.0 Immature Gran % (Auto) 0.6 H Neut % (Auto) 77.5 H Lymph % (Auto) 12.2 L [place] % (Auto) 7.9 Eos % (Auto) 1.4 Baso % (Auto) 0.4 Lymph # (Auto) 1.54 [place] # (Auto) 1.0 H Eos # (Auto) 0.2 Baso # (Auto) 0.1 Abs Immat Gran (auto) 0.07 H Absolute Neuts (auto) 9.8 H Absolute Nucleated RBC 0.000 Nucleated RBC % 0.0 PT 13.6 INR 1.0 APTT 25.1 43.1 H Sodium Potassium Chloride Carbon Dioxide Anion Gap BUN Creatinine Estim Creat Clear Calc Estimated GFR Glucose Calcium Total Bilirubin AST ALT Alkaline Phosphatase Total Protein Albumin 01/16/25 01/16/25 03:38 10:59 WBC 10.3 H RBC 3.61 L Hgb 11.1 L Hct 35.5 L MCV 98.3 MCH 30.7 MCHC 31.3 L RDW 13.1 Plt Count 262 MPV 9.8 Immature Gran % (Auto) 0.6 H Neut % (Auto) 68.4 Lymph % (Auto) 17.9 L [place] % (Auto) 10.1 H Eos % (Auto) 2.4 Baso % (Auto) 0.6 Lymph # (Auto) 1.84 [place] # (Auto) 1.0 H Eos # (Auto) 0.3 Baso # (Auto) 0.1 Abs Immat Gran (auto) 0.06 H Absolute Neuts (auto) 7.0 H Absolute Nucleated RBC 0.000 Nucleated RBC % 0.0 PT 13.9 INR 1.0 APTT 134.8 H 48.8 H Sodium 139 Potassium 4.2 Chloride 105 Carbon Dioxide 27 Anion Gap 7 BUN 12 Creatinine 0.93 Estim Creat Clear Calc 79 Estimated GFR > 60 Glucose 106 Calcium 8.5 Total Bilirubin 0.6 AST 29 ALT 40 Alkaline Phosphatase 159 H Total Protein 6.0 L Albumin 3.5 Quality VTE Prophylaxis VTE prophylaxis: mechanical ordered and pharmacologic ordered
[2025-01-16 14:00] VITALS: BP 106/67; PULSE 74; RESP 16; TEMP 37; O2SAT 95
[2025-01-16 17:41] LABS: Partial Thromboplastin Time 70.8 Seconds (22.3-36.8)
[2025-01-16] MEDS: ATORVASTATIN 40 MG TABLET 80 MG PO (20:47)
[2025-01-16 21:30] VITALS: BP 114/64; PULSE 61; RESP 18; TEMP 37.3; O2SAT 91
[2025-01-16] MEDS: HEPARIN SOD/D5W 100 UNITS/ML 25,000 UNITS/250 ML BAG 18 UNITS IV CONT (22:25)
[2025-01-16 23:27] LABS: Partial Thromboplastin Time 71.3 Seconds (22.3-36.8)
[2025-01-17] VITALS (16 sets, daily range): BP systolic 87–141; BP diastolic 59–82; PULSE 60–80; RESP 10–20; TEMP 36.1–37.2; O2SAT 93–100
[2025-01-17 06:23] LABS: Partial Thromboplastin Time 82.5 Seconds (22.3-36.8)
[2025-01-17] MEDS: BREO ELLIPTA 1 EACH INHALATION (07:43)
[2025-01-17] MEDS: SPIRIVA 2 EACH INHALATION (07:43)
[2025-01-17 08:01] LABS: Basophils Absolute Auto 0.1 K/mm3 (0.0-0.1); Basophils Percent Auto 0.6 % (0.2-1.2); Eosinophils Absolute Auto 0.3 K/mm3 (0-0.3); Eosinophils Percent Auto 3.1 % (0-4.4); Hematocrit 35.7 % (42.0-52.0); Hemoglobin 11.2 g/dL (14.0-18.0); Immature Granulocyte Absolute 0.05 K/mm3 (0.00-0.031); Immature Granulocyte Percent A 0.5 % (0-0.5); Lymphocytes Absolute Auto 1.48 K/mm3 (0.9-3.2); Lymphocytes Percent Auto 15.7 % (18.3-44.2); Mean Corpuscular HGB Conc 31.4 g/dl (32-36); Mean Corpuscular Hemoglobin 31.1 pg (26-34); Mean Corpuscular Volume 99.2 fl (80-100); Mean Platelet Volume 10.5 fl (7.4-10.4); Monocytes Absolute Auto 0.9 K/mm3 (0.1-0.6); Monocytes Percent Auto 9.1 % (2.6-8.5); Neutrophils Absolute Auto 6.7 K/mm3 (1.3-6.7); Platelet Count Result 330 k/mm3 (150-375); Red Cell Distribution Width 13.2 % (11.5-14.5); White Blood Count 9.4 K/mm3 (4.5-10.0)
[2025-01-17 08:25] LABS: Alanine Aminotransferase 38 U/L (6-50); Albumin Level 3.5 g/dL (3.5-5.1); Alkaline Phosphatase 168 U/L (38-126); Anion Gap 4 mmol/L (4-12); Aspartate Amino Transferase 30 U/L (17-59); Bilirubin,Total 0.6 mg/dL (0.2-1.3); Blood Urea Nitrogen 14 mg/dL (9-20); Calcium 8.7 mg/dL (8.4-10.2); Carbon Dioxide 27 mmol/L (22-30); Chloride 106 mmol/L (98-107); Estimated CRCL calculation 75 ml/min; Estimated Glomerular Filt Rate > 60; Glucose 107 mg/dL (65-110); Potassium 4.3 mmol/L (3.4-5.0); Sodium 137 mmol/L (137-145)
--- NOTE | 2025-01-17 11:36 | P.PNUR_ITS ---
Progress Note: A&P Assessment and Plan (1) Gross hematuria: Code(s): R31.0 - Gross hematuria Status: Acute Assessment and Plan: Pelvic ultrasound reveals residual bladder clot. Will proceed with cystoscopy with clot evacuation. Subjective Subjective Date/Time Seen: 01/17/25 11:36 Principal diagnosis: Bladder carcinoma with hematuria and clots Interval history: Feeling better but pelvic ultrasound reveals approximately 5 cm bladder clot in the bladder. Review of Systems Review of Systems: All systems reviewed & are unremarkable except as noted in HPI and below Exam Const: General: cooperative and comfortable Resp: Effort & Inspection: normal respiratory effort Cardio: Rate: regular rate Rhythm: regular rhythm Objective Data Vital Signs Vital Signs: Vital Signs - 24 hr 01/16/25 14:00 01/16/25 20:47 01/16/25 21:30 Temperature 37.0 C 37.3 C Pulse Rate 74 61 Respiratory Rate 16 18 Blood Pressure 106/67 114/64 Pulse Oximetry 95 91 Oxygen Delivery Room Air 01/17/25 05:30 01/17/25 07:44 01/17/25 07:44 Temperature 37.1 C Pulse Rate 66 63 63 Respiratory Rate 18 20 20 Blood Pressure 114/59 L Pulse Oximetry 95 96 Oxygen Delivery Room Air Intake/Output Intake/Output: Intake & Output 01/14/25 01/15/25 01/16/25 01/17/25 23:59 23:59 23:59 23:59 Intake Total 3410 2628.5 1694.9 475.1 Output Total [address]46 [address] [facility] -[address] -55397.5 -07993.1 -2424.9 Meds/Results Medications: Active Medications Generic Name Dose Route Start Last Admin Trade Name Freq PRN Reason Stop Dose Admin Acetaminophen 650 mg 01/13/25 18:06 Acetaminophen 325 Mg Tablet PO Q4H PRN Mild Pain (1-3) or Fever Hydrocodone Bitart/Acetaminophen 1 tab 01/13/25 20:05 01/14/25 13:10 Hydrocodone/Acetaminophen (*Crx) 5-325 Mg Tablet PO 1 tab Q6H PRN Administration Pain Rated 4-6 Allopurinol 100 mg 01/14/25 09:00 01/16/25 09:17 Allopurinol 100 Mg Tablet PO 100 mg DAILY TIFFANY Administration Atorvastatin Calcium 80 mg 01/14/25 21:00 01/16/25 20:47 Atorvastatin 40 Mg Tablet PO 80 mg QHS TIFFANY Administration Heparin Sodium (Porcine) 6,500 units 01/15/25 13:02 01/15/25 21:28 Heparin Sodium 5,000 Units/Ml Vial IV PUSH 6,500 units PRN PRN Administration aPTT less than 55 seconds Heparin Sodium (Porcine) 3,500 units 01/15/25 13:02 Heparin Sodium 5,000 Units/Ml Vial IV PUSH PRN PRN aPTT 55 - 70 seconds Home Med 2 each 01/14/25 12:00 01/17/25 07:43 Home Medication-Spiriva INHALATION 02/13/25 11:59 2 each DAILY TIFFANY Administration Home Med 1 each 01/14/25 12:05 01/17/25 07:43 Home Medication-Breo Ellipta INHALATION 02/13/25 12:04 1 each DAILY TIFFANY Administration Hydromorphone HCl 0.5 mg 01/13/25 20:43 Hydromorphone Hcl Inj (*Crx) 1 Mg/Ml Syr IV PUSH Q3H PRN Pain Rated 7-10 Hyoscyamine 0.125 mg 01/13/25 17:08 01/14/25 10:31 Hyoscyamine Sulfate 0.125 Mg Tablet SUBLINGUAL 0.125 mg Q4H PRN Administration Bladder Spasm Heparin Sodium/Dextrose 25,000 units in 250 mls @ 18 mls/hr 01/15/25 13:25 01/17/25 06:40 Heparin Sodium/D5w 100 Units/Ml IV CONT 1,800 units/hr .[id number] TIFFANY 18 mls/hr Titration Protocol 1,800 UNITS/HR Ondansetron HCl 4 mg 01/13/25 18:06 Ondansetron Inj 4 Mg/2 Ml Vial IV PUSH Q4H PRN Nausea Oxybutynin Chloride 5 mg 01/14/25 15:10 01/16/25 09:17 Oxybutynin Chloride Xl 5 Mg Tab.Er.24 PO 5 mg QAM TIFFANY Administration Polyethylene Glycol 17 gm 01/15/25 16:19 01/15/25 18:16 Polyethylene Glycol 3350 17 Gm Powd.Pack PO 17 gm DAILY PRN Administration Constipation Radiology Results: ITS Impressions Pelvis Ultrasound 01/16/25 16:07 IMPRESSION: Findings within the bladder lumen which may represent thrombus (most likely), as detailed above. Labs Labs: Laboratory Results - last 24 hr 01/16/25 01/16/25 01/17/25 17:22 23:08 05:46 WBC 9.4 RBC 3.60 L Hgb 11.2 L Hct 35.7 L MCV 99.2 MCH 31.1 MCHC 31.4 L RDW 13.2 Plt Count 330 MPV 10.5 H Immature Gran % (Auto) 0.5 Neut % (Auto) 71.0 Lymph % (Auto) 15.7 L [place] % (Auto) 9.1 H Eos % (Auto) 3.1 Baso % (Auto) 0.6 Lymph # (Auto) 1.48 [place] # (Auto) 0.9 H Eos # (Auto) 0.3 Baso # (Auto) 0.1 Abs Immat Gran (auto) 0.05 H Absolute Neuts (auto) 6.7 Absolute Nucleated RBC 0.000 Nucleated RBC % 0.0 APTT 70.8 H 71.3 H 82.5 H Sodium 137 Potassium 4.3 Chloride 106 Carbon Dioxide 27 Anion Gap 4 BUN 14 Creatinine 0.97 Estim Creat Clear Calc 75 Estimated GFR > 60 Glucose 107 Calcium 8.7 Total Bilirubin 0.6 AST 30 ALT 38 Alkaline Phosphatase 168 H Total Protein 6.0 L Albumin 3.5
--- NOTE | 2025-01-17 11:36 | WPDHPUPDATE1 ---
History and Physical Update Update Date/Time: 01/17/25 11:36 History and Physical has been reviewed, including an updated exam of the patient. There are NO changes in the patient's condition. Risks, benefits, and alternatives have been discussed and questions answered. Patient agrees to proceed with procedure. Proceed with cystoscopy with clot evacuation
[2025-01-17] MEDS: LACTATED RINGERS 1,000 ML 30 ML IV CONT ×2 (12:00→13:29)
[2025-01-17] MEDS: HEPARIN SOD/D5W 100 UNITS/ML 25,000 UNITS/250 ML BAG 18 UNITS IV CONT (12:19)
--- NOTE | 2025-01-17 12:24 | ECG_ITS ---
Test Date: 2025-01-17 12:41:00 Measurements Intervals [place] Rate: 69 P: 62 WV: 178 QRS: 53 QRSD: 102 T: 77 QT: 409 QTc: 441 Interpretive Statements SINUS RHYTHM BORDERLINE ST-T WAVE ABNORMALITY- HIGH LATERAL LEADS BORDERLINE ECG No previous ECG available for comparison Electronically Signed On 01-17-2025 12:56:30 CDT by Mario Monique D.O.
--- NOTE | 2025-01-17 12:37 | P.PNAN_ITS ---
Anes - Initial Pre Proc Eval Procedure: Operation Date: 01/17/25 12:30 Proposed Procedures p Cystoscopy, Evacuation Bladder Clot - Jack Arshad MD Date/Time: 01/17/25 12:37 Surgeon: Colin Hyman PA-C Pre Op Diagnosis: urinary retention, hematuria, CBI Patient Data Age: 69 Gender: M Height: 1.73 m Weight: 107.9 kg Last Vital Signs Temp 37.2 C 01/17/25 12:29 Pulse 72 01/17/25 12:29 Resp 16 01/17/25 12:29 BP 140/82 01/17/25 12:29 Pulse Ox 97 01/17/25 12:29 O2 Del Method Room Air 01/17/25 12:29 Allergies Allergy/AdvReac Type Severity Reaction Status Date / Time No Known Allergies Allergy Verified 01/17/25 12:28 Home Medications ?Medication ?Instructions ?Recorded ?Confirmed ?Type allopurinol 100 mg tablet 100 mg PO DAILY 01/13/25 01/13/25 History atorvastatin 80 mg tablet 80 mg PO QPM 01/13/25 01/13/25 History enoxaparin 120 mg/0.8 mL 120 mg subcut Q12H 01/13/25 01/13/25 History subcutaneous syringe fluticasone furoate 200 1 inh inhalation Q24H 01/13/25 01/13/25 History mcg-vilanterol 25 mcg/dose inhalation powder (Breo Ellipta) tiotropium bromide 2.5 2 puff inhalation Q24H 01/13/25 01/13/25 History mcg/actuation mist for inhalation (Spiriva Respimat) warfarin 4 mg tablet 4 mg PO WEEKLY 01/13/25 01/13/25 History Laboratory Tests 01/16/25 01/16/25 01/17/25 17:22 23:08 05:46 WBC 9.4 K/mm3 (4.5-10.0) RBC 3.60 L M/mm3 (4.6-6.20) Hgb 11.2 L g/dL (14.0-18.0) Hct 35.7 L % (42.0-52.0) MCV 99.2 fl (80-100) MCH 31.1 pg (26-34) MCHC 31.4 L g/dl (32-36) RDW 13.2 % (11.5-14.5) Plt Count 330 k/mm3 (150-375) MPV 10.5 H fl (7.4-10.4) Immature Gran % (Auto) 0.5 % (0-0.5) Neut % (Auto) 71.0 % (45.5-73.1) Lymph % (Auto) 15.7 L % (18.3-44.2) [place] % (Auto) 9.1 H % (2.6-8.5) Eos % (Auto) 3.1 % (0-4.4) Baso % (Auto) 0.6 % (0.2-1.2) Lymph # (Auto) 1.48 K/mm3 (0.9-3.2) [place] # (Auto) 0.9 H K/mm3 (0.1-0.6) Eos # (Auto) 0.3 K/mm3 (0-0.3) Baso # (Auto) 0.1 K/mm3 (0.0-0.1) Abs Immat Gran (auto) 0.05 H K/mm3 (0.00-0.031) Absolute Neuts (auto) 6.7 K/mm3 (1.3-6.7) Absolute Nucleated RBC 0.000 K/mm3 (0.0-0.012) Nucleated RBC % 0.0 % (0.0-0.2) APTT 70.8 H Seconds 71.3 H Seconds 82.5 H Seconds (22.3-36.8) (22.3-36.8) (22.3-36.8) Sodium 137 mmol/L (137-145) Potassium 4.3 mmol/L (3.4-5.0) Chloride 106 mmol/L (98-107) Carbon Dioxide 27 mmol/L (22-30) Anion Gap 4 mmol/L (4-12) BUN 14 mg/dL (9-20) Creatinine 0.97 mg/dL (0.7-1.3) Estim Creat Clear Calc 75 ml/min Estimated GFR > 60 (59 - ) Glucose 107 mg/dL (65-110) Calcium 8.7 mg/dL (8.4-10.2) Total Bilirubin 0.6 mg/dL (0.2-1.3) AST 30 U/L (17-59) ALT 38 U/L (6-50) Alkaline Phosphatase 168 H U/L (38-126) Total Protein 6.0 L g/dL (6.3-8.2) Albumin 3.5 g/dL (3.5-5.1) Patient hx anesthesia problems: none Family hx anesthesia problems: none Results Review: All pre-operative results and documents have been reviewed as part of the pre- operative evaluation. PMFSH Past Medical History Medical History HLD (hyperlipidemia) Chronic anticoagulation r/t AV replacement Bladder cancer Surgical History Surgical History History of aortic valve replacement History of transurethral resection of bladder tumor (TURBT) Social History Social History Smoking status: Former smoker Tobacco type: cigarettes Second hand tobacco smoke exposure: No Alcohol intake: never Substance use: never Substance use type: does not use Do You Feel Safe in your Home?: Yes Lack of Transportation: No Lack of Food: Never True Current Housing: I Have Housing Concerned About Future Housing: No Difficulty Paying Gas/Electric Bills: No Difficulty Paying for Meds: No Currently Unemployed: No Education: Trade/Vocational Certificate Difficulty w/ Childcare or Family Care: No Spiritual care concerns: No Anes - Eval Final PreProcedure Day of Procedure 01/17/25 12:37 Patient weight: obese Heart: regular rate and rhythm Lungs: decreased breath sounds Airway: Mallampati scale class II Neurological: alert and oriented Last oral intake: >/= 8 hours ASA classification: III Emergent: no Anesthetic plan: proceed Anesthesia type and monitoring: general LMA and standard monitoring Results Review: All pre-operative results and documents have been reviewed as part of the pre- operative evaluation. Informed Consent: The patient's anesthetic plan and its attendant risks and benefits were discus sed with the patient/family/POA. Questions were solicited and answers provided to the satisfaction of the patient/family/POA.
[2025-01-17] MEDS: ceFAZolin 2 GM/D5W 50 ML 2 GM/50 ML BAG IVPB (12:50)
--- NOTE | 2025-01-17 12:58 | SUR.PREOP ---
1145: SPOKE W/ DR. MICHEL TO MAKE AWARE THAT HEPARIN DRIP WAS INFUSING @ 18UNITS/KG/HR. ANAND STATES MUST PROCEED W/ SURGERY WITHOUT ANTICOAGULANT THERAPY BEING ON HOLD PRIOR TO OR.
[2025-01-17] MEDS: LIDOCAINE 2% GEL UROJET 10 ML PKG MUCOUS MEM (13:06)
--- NOTE | 2025-01-17 13:24 | W.PM.PROC2 ---
Procedure Note - Detailed Date of Procedure 01/17/25 Pre-op Diagnosis Gross hematuria with clots, bladder cancer Post-op Diagnosis Same Procedure Performed Cystoscopy with clot evacuation and fulguration with complex Love catheter placement Surgeon Jack Arshad MD Anesthesia General Description of Procedure Patient was taken to the operative suite correctly identified. Once anesthesia was obtained was placed in dorsal lithotomy position and prepped draped usual sterile fashion. Twenty-two Welsh scope was inserted into the bladder. Using the Maame syringe we evacuated approximately 400 cc of clot out. Reinspection reveals no discrete bleeding but the was evident that the clot was originating from the prior resection site. Using a rollerball I fulgurated this area. He also had another area near the dome which had a clot which was evacuated and fulgurated. There appeared to be good hemostasis at termination of this portion of the procedure. 2% viscous lidocaine was inserted into the urethra. Twenty-two Welsh [address] was placed with 15 cc in the balloon. This was connected to continuous bladder irrigation and he was taken recovery stable condition. This completes dictation. Please send a copy of op note to my office Estimated Blood Loss 0 Urine Output 0 Drains Yes Packing No Pathology None sent Complications No immediate complications Condition Stable Disposition PACU
--- NOTE | 2025-01-17 13:57 | P.PNIM_ITS ---
Progress Note: A&P Assessment and Plan (1) Gross hematuria: Code(s): R31.0 - Gross hematuria Status: Acute Assessment and Plan: * Gross hematuria w/ large close, causing retention * Initial BS: 400mL retention * 3-way [address] for continuous bladder irrigation * Urology consulted, appreciate further recommendations * Maintain CBI * Ditropan for bladder spasms * Heparin drip initiated * Monitor INR * US pelvic limited on 01/16/25: Findings within the bladder lumen which may represent thrombus (most likely) * Urology to proceed with cystoscopy with clot evac on 01/17 (2) Acute urinary retention: Code(s): R33.8 - Other retention of urine Status: Acute Assessment and Plan: * Do placed, see above. (3) Bladder cancer: Qualifiers: Bladder location: unspecified site Qualified Code(s): C67.9 - Malignant neoplasm of bladder, unspecified Code(s): C67.9 - Malignant neoplasm of bladder, unspecified Status: Acute Assessment and Plan: * Recent TURBT on 01/10/2025 at [facility]. Pathology showed invasive poorly differentiated urothelial carcinoma. * Will need outpatient follow-up for further treatment. 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 He reports his last urination was 3 hours prior to arrival. 01/17/2025 Patient is sitting comfortably at time of examination. Currently denies any CP, SOB, n/v, or abdominal pain. Urine in catheter bag continues to be light tea colored. Pelvic ultrasound obtained and showed approximately 5cm bladder clot in bladder. Urology made aware and patient will undergo cystoscopy with clot evac. Review of Systems Review of Systems: All systems reviewed & are unremarkable except as noted in HPI and below Exam Const: General: comfortable and no acute distress Other: , male, nontoxic appearance HENMT: Face/Nose/Sinus: Normal nares present Mouth: Yes moist mucous membranes Eyes: General: appearance normal, both eyes and all related structures Sclera: sclerae normal Pupils: Equal, round and reactive pupils present EOM: EOMs intact bilaterally Resp: Effort & Inspection: normal respiratory effort Auscultation: clear to auscultation bilaterally Cardio: Rate: regular rate Rhythm: regular rhythm Other: S1-S2 present without murmur, rub, ectopy GI: Other: Abdomen soft, nondistended, nontender. Normoactive bowel sounds in all quadrants. : Other: No suprapubic tenderness at present. Three way Od catheter in place. Urinary Catheter: Urinary Catheter: patent and draining and other (Tea-colored urine) Skin: General skin exam: normal color and no rashes or lesions noted Wounds: no wounds Neuro: Cranial nerves: Yes Equal, round and reactive pupils present Speech: normal speech Motor exam (neuro): 5/5 motor strength present throughout Sensory Exam: normal sensation Other: A&O x4 Extrem: General: normal to inspection Psych: Mental Status: mental status grossly normal Affect: normal affect Other: Good insight and judgment, pleasant Objective Data Vital Signs Vital Signs: Vital Signs - 24 hr 01/16/25 14:00 01/16/25 20:47 01/16/25 21:30 Temperature 98.6 F 99.1 F Pulse Rate 74 61 Respiratory Rate 16 18 Blood Pressure 106/67 114/64 Pulse Oximetry 95 91 Oxygen Delivery Room Air Oxygen Flow Rate 01/17/25 05:30 01/17/25 07:44 01/17/25 07:44 Temperature 98.8 F Pulse Rate 66 63 63 Respiratory Rate 18 20 20 Blood Pressure 114/59 L Pulse Oximetry 95 96 Oxygen Delivery Room Air Oxygen Flow Rate 01/17/25 12:29 01/17/25 13:29 01/17/25 13:40 Temperature 99.0 F 97.0 F L Pulse Rate 72 75 60 Respiratory Rate 16 10 L 13 Blood Pressure 140/82 87/61 L 87/60 L Pulse Oximetry 97 100 100 Oxygen Delivery Room Air Simple Face Mask Simple Face Mask Oxygen Flow Rate 8 8 01/17/25 13:55 Temperature Pulse Rate 66 Respiratory Rate 12 Blood Pressure 120/67 Pulse Oximetry 100 Oxygen Delivery Room Air Oxygen Flow Rate Intake/Output Intake/Output: Intake & Output 01/14/25 01/15/25 01/16/25 01/17/25 23:59 23:59 23:59 23:59 Intake Total 3410 2628.5 1694.9 525.1 Output Total 93269 20046 25139 4000 Balance -05321 -58997.5 -68087.1 -3474.9 Meds/Results Medications: Active Medications Generic Name Dose Route Start Last Admin Trade Name Freq PRN Reason Stop Dose Admin Acetaminophen 650 mg 01/13/25 18:06 Acetaminophen 325 Mg Tablet PO Q4H PRN Mild Pain (1-3) or Fever Hydrocodone Bitart/Acetaminophen 1 tab 01/13/25 20:05 01/14/25 13:10 Hydrocodone/Acetaminophen (*Crx) 5-325 Mg Tablet PO 1 tab Q6H PRN Administration Pain Rated 4-6 Allopurinol 100 mg 01/14/25 09:00 01/16/25 09:17 Allopurinol 100 Mg Tablet PO 100 mg DAILY TIFFANY Administration Atorvastatin Calcium 80 mg 01/14/25 21:00 01/16/25 20:47 Atorvastatin 40 Mg Tablet PO 80 mg QHS TIFFANY Administration Fentanyl Citrate 25 mcg 01/17/25 12:38 Fentanyl Citrate Inj (*Crx) 100 Mcg/2 Ml Vial IV PUSH Q2M PRN Pain Heparin Sodium (Porcine) 6,500 units 01/15/25 13:02 01/15/25 21:28 Heparin Sodium 5,000 Units/Ml Vial IV PUSH 6,500 units PRN PRN Administration aPTT less than 55 seconds Heparin Sodium (Porcine) 3,500 units 01/15/25 13:02 Heparin Sodium 5,000 Units/Ml Vial IV PUSH PRN PRN aPTT 55 - 70 seconds Home Med 2 each 01/14/25 12:00 01/17/25 07:43 Home Medication-Spiriva INHALATION 02/13/25 11:59 2 each DAILY TIFFANY Administration Home Med 1 each 01/14/25 12:05 01/17/25 07:43 Home Medication-Breo Ellipta 200/25 INHALATION 02/13/25 12:04 1 each DAILY TIFFANY Administration Hydromorphone HCl 0.5 mg 01/13/25 20:43 Hydromorphone Hcl Inj (*Crx) 1 Mg/Ml Syr IV PUSH Q3H PRN Pain Rated 7-10 Hyoscyamine 0.125 mg 01/13/25 17:08 01/14/25 10:31 Hyoscyamine Sulfate 0.125 Mg Tablet SUBLINGUAL 0.125 mg Q4H PRN Administration Bladder Spasm Heparin Sodium/Dextrose 25,000 units in 250 mls @ 18 mls/hr 01/15/25 13:25 01/17/25 06:40 Heparin Sodium/D5w 100 Units/Ml IV CONT 1,800 units/hr .[id number] TIFFANY 18 mls/hr Titration Protocol 1,800 UNITS/HR Lactated Ringer's 1,000 mls @ 30 mls/hr 01/17/25 12:40 01/17/25 13:29 Lr - Lactated Ringers Iv IV CONT 30 mls/hr .Q24H TIFFANY Administration Lactated Ringer's 1,000 mls @ 30 mls/hr 01/17/25 12:40 Lr - Lactated Ringers Iv IV CONT .Q24H TIFFANY Lactated Ringer's 1,000 mls @ 30 mls/hr 01/17/25 13:00 01/17/25 12:00 Lr - Lactated Ringers Iv IV CONT 30 mls/hr .Q24H TIFFANY Administration Ondansetron HCl 4 mg 01/13/25 18:06 Ondansetron Inj 4 Mg/2 Ml Vial IV PUSH Q4H PRN Nausea Ondansetron HCl 4 mg 01/17/25 12:38 Ondansetron Inj 4 Mg/2 Ml Vial IV PUSH ONCE PRN Nausea Oxybutynin Chloride 5 mg 01/14/25 15:10 01/16/25 09:17 Oxybutynin Chloride Xl 5 Mg Tab.Er.24 PO 5 mg QAM TIFFANY Administration Polyethylene Glycol 17 gm 01/15/25 16:19 01/15/25 18:16 Polyethylene Glycol 3350 17 Gm Powd.Pack PO 17 gm DAILY PRN Administration Constipation Radiology Results: ITS Impressions Pelvis Ultrasound 01/16/25 16:07 IMPRESSION: Findings within the bladder lumen which may represent thrombus (most likely), as detailed above. Labs Labs: Laboratory Results - last 24 hr 01/16/25 01/16/25 01/17/25 17:22 23:08 05:46 WBC 9.4 RBC 3.60 L Hgb 11.2 L Hct 35.7 L MCV 99.2 MCH 31.1 MCHC 31.4 L RDW 13.2 Plt Count 330 MPV 10.5 H Immature Gran % (Auto) 0.5 Neut % (Auto) 71.0 Lymph % (Auto) 15.7 L [place] % (Auto) 9.1 H Eos % (Auto) 3.1 Baso % (Auto) 0.6 Lymph # (Auto) 1.48 [place] # (Auto) 0.9 H Eos # (Auto) 0.3 Baso # (Auto) 0.1 Abs Immat Gran (auto) 0.05 H Absolute Neuts (auto) 6.7 Absolute Nucleated RBC 0.000 Nucleated RBC % 0.0 APTT 70.8 H 71.3 H 82.5 H Sodium 137 Potassium 4.3 Chloride 106 Carbon Dioxide 27 Anion Gap 4 BUN 14 Creatinine 0.97 Estim Creat Clear Calc 75 Estimated GFR > 60 Glucose 107 Calcium 8.7 Total Bilirubin 0.6 AST 30 ALT 38 Alkaline Phosphatase 168 H Total Protein 6.0 L Albumin 3.5 Quality VTE Prophylaxis VTE prophylaxis: mechanical ordered and pharmacologic ordered
[2025-01-17] MEDS: fentaNYL CITRATE INJ (*CRX) 100 MCG/2 ML VIAL 25 MCG IV PUSH ×4 (14:13→14:45)
[2025-01-17] MEDS: allopurinoL 100 MG TABLET PO (16:36)
[2025-01-17] MEDS: oxyBUTYnin CHLORIDE XL 5 MG TAB.ER.24 PO (16:36)
[2025-01-17] MEDS: HYDROcodone/acetaminophen (*CRX) 5-325 MG TABLET 1 TAB PO (16:38)
[2025-01-17] MEDS: ATORVASTATIN 40 MG TABLET 80 MG PO (20:13)
[2025-01-17] MEDS: HYDROmorphone HCL INJ (*CRX) 1 MG/ML SYR 0.5 MG IV PUSH (20:14)
[2025-01-18] MEDS: HEPARIN SOD/D5W 100 UNITS/ML 25,000 UNITS/250 ML BAG 18 UNITS IV CONT ×2 (00:47→14:42)
[2025-01-18] MEDS: HYDROcodone/acetaminophen (*CRX) 5-325 MG TABLET 1 TAB PO (00:53)
[2025-01-18 03:04] VITALS: BP 107/64; PULSE 54; RESP 16; TEMP 36.2; O2SAT 95
[2025-01-18 06:09] LABS: Partial Thromboplastin Time 102.8 Seconds (22.3-36.8)
[2025-01-18] MEDS: oxyBUTYnin CHLORIDE XL 5 MG TAB.ER.24 PO (08:30)
[2025-01-18] MEDS: SPIRIVA 2 EACH INHALATION (08:30)
[2025-01-18] MEDS: allopurinoL 100 MG TABLET PO (08:30)
[2025-01-18] MEDS: BREO ELLIPTA 1 EACH INHALATION (08:30)
[2025-01-18 11:46] VITALS: BP 131/70; PULSE 63; RESP 18; TEMP 36.4; O2SAT 95
[2025-01-18 14:00] VITALS: BP 117/62; PULSE 66; RESP 20; TEMP 36.1; O2SAT 97
[2025-01-18] MEDS: polyethylene glycoL 3350 17 GM POWD.PACK PO (14:49)
[2025-01-18] MEDS: ATORVASTATIN 40 MG TABLET 80 MG PO (20:04)
[2025-01-18 21:09] VITALS: BP 99/60; PULSE 62; RESP 12; TEMP 36.5; O2SAT 95
[2025-01-19] MEDS: HEPARIN SOD/D5W 100 UNITS/ML 25,000 UNITS/250 ML BAG 18 UNITS IV CONT (04:30)
[2025-01-19 05:34] VITALS: BP 98/66; PULSE 55; RESP 12; TEMP 36.4; O2SAT 94
--- NOTE | 2025-01-19 08:25 | P.PNIM_ITS ---
Progress Note: A&P Assessment and Plan (1) Gross hematuria: Code(s): R31.0 - Gross hematuria Status: Acute Assessment and Plan: * Gross hematuria w/ large close, causing retention * Initial BS: 400mL retention * 3-way [address] for continuous bladder irrigation * Urology consulted, appreciate further recommendations * Maintain CBI * Ditropan for bladder spasms * Heparin drip initiated * Monitor INR * US pelvic limited on 01/16/25: Findings within the bladder lumen which may represent thrombus (most likely) * s/p Cystoscopy with clot evacuation * Awaiting Urology clearance (2) Acute urinary retention: Code(s): R33.8 - Other retention of urine Status: Acute Assessment and Plan: * Do placed, see above. (3) Bladder cancer: Qualifiers: Bladder location: unspecified site Qualified Code(s): C67.9 - Malignant neoplasm of bladder, unspecified Code(s): C67.9 - Malignant neoplasm of bladder, unspecified Status: Acute Assessment and Plan: * Recent TURBT on 01/10/2025 at [facility]. Pathology showed invasive poorly differentiated urothelial carcinoma. * Will need outpatient follow-up for further treatment. 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 (4) History of aortic valve replacement: Code(s): Z95.2 - Presence of prosthetic heart valve Status: Acute Assessment and Plan: * Hold warfarin * Heparin Drip * Will plan to switch to lovenox upon discharge Plan Diet: Regular GI Prophylaxis: Not currently indicated DVT Prophylaxis: SCDs, hold warfarin Lines: Peripheral Code Status: Full code Subjective Date/time seen: 01/18/25 08:25 Interval history: Comfortable at bedside Review of Systems Review of Systems: All systems reviewed & are unremarkable except as noted in HPI and below Exam Const: General: comfortable and no acute distress Other: , male, nontoxic appearance HENMT: Face/Nose/Sinus: Normal nares present Mouth: Yes moist mucous membranes Eyes: General: appearance normal, both eyes and all related structures Sclera: sclerae normal Pupils: Equal, round and reactive pupils present EOM: EOMs intact bilaterally Resp: Effort & Inspection: normal respiratory effort Auscultation: clear to auscultation bilaterally Cardio: Rate: regular rate Rhythm: regular rhythm Other: S1-S2 present without murmur, rub, ectopy GI: Other: Abdomen soft, nondistended, nontender. Normoactive bowel sounds in all quadrants. : Other: No suprapubic tenderness at present. Three way Do catheter in place. Urinary Catheter: Urinary Catheter: patent and draining and other (Tea-colored urine) Skin: General skin exam: normal color and no rashes or lesions noted Wounds: no wounds Neuro: Cranial nerves: Yes Equal, round and reactive pupils present Speech: normal speech Motor exam (neuro): 5/5 motor strength present throughout Sensory Exam: normal sensation Other: A&O x4 Extrem: General: normal to inspection Psych: Mental Status: mental status grossly normal Affect: normal affect Other: Good insight and judgment, pleasant Objective Data Vital Signs Vital Signs: Vital Signs - 24 hr 01/18/25 11:46 01/18/25 14:00 01/18/25 20:00 Temperature 97.5 F L 97.0 F L Pulse Rate 63 66 Respiratory Rate 18 20 Blood Pressure 131/70 117/62 Pulse Oximetry 95 97 Oxygen Delivery Room Air 01/18/25 21:09 01/19/25 05:34 Temperature 97.7 F 97.5 F L Pulse Rate 62 55 L Respiratory Rate 12 12 Blood Pressure 99/60 L 98/66 L Pulse Oximetry 95 94 Oxygen Delivery Intake/Output Intake/Output: Intake & Output 01/16/25 01/17/25 01/18/25 01/19/25 23:59 23:59 23:59 23:59 Intake Total 1694.9 1766.6 1434.4 698.4 Output Total 54455 83311 2350 1325 [facility] -28213.1 -8883.4 -915.6 -626.6 Meds/Results Medications: Active Medications Generic Name Dose Route Start Last Admin Trade Name Freq PRN Reason Stop Dose Admin Acetaminophen 650 mg 01/13/25 18:06 Acetaminophen 325 Mg Tablet PO Q4H PRN Mild Pain (1-3) or Fever Hydrocodone Bitart/Acetaminophen 1 tab 01/13/25 20:05 01/18/25 00:53 Hydrocodone/Acetaminophen (*Crx) 5-325 Mg Tablet PO 1 tab Q6H PRN Administration Pain Rated 4-6 Allopurinol 100 mg 01/14/25 09:00 01/18/25 08:30 Allopurinol 100 Mg Tablet PO 100 mg DAILY TIFFANY Administration Atorvastatin Calcium 80 mg 01/14/25 21:00 01/18/25 20:04 Atorvastatin 40 Mg Tablet PO 80 mg QHS TIFFANY Administration Fentanyl Citrate 25 mcg 01/17/25 12:38 01/17/25 14:45 Fentanyl Citrate Inj (*Crx) 100 Mcg/2 Ml Vial IV PUSH 25 mcg Q2M PRN Administration Pain Heparin Sodium (Porcine) 6,500 units 01/15/25 13:02 01/15/25 21:28 Heparin Sodium 5,000 Units/Ml Vial IV PUSH 6,500 units PRN PRN Administration aPTT less than 55 seconds Heparin Sodium (Porcine) 3,500 units 01/15/25 13:02 Heparin Sodium 5,000 Units/Ml Vial IV PUSH PRN PRN aPTT 55 - 70 seconds Home Med 2 each 01/14/25 12:00 01/18/25 08:30 Home Medication-Spiriva INHALATION 02/13/25 11:59 2 each DAILY TIFFANY Administration Home Med 1 each 01/14/25 12:05 01/18/25 08:30 Home Medication-Breo Ellipta 25 INHALATION 02/13/25 12:04 1 each DAILY TIFFANY Administration Hydromorphone HCl 0.5 mg 01/13/25 20:43 01/17/25 20:14 Hydromorphone Hcl Inj (*Crx) 1 Mg/Ml Syr IV PUSH 0.5 mg Q3H PRN Administration Pain Rated 7-10 Hyoscyamine 0.125 mg 01/13/25 17:08 01/14/25 10:31 Hyoscyamine Sulfate 0.125 Mg Tablet SUBLINGUAL 0.125 mg Q4H PRN Administration Bladder Spasm Heparin Sodium/Dextrose 25,000 units in 250 mls @ 18 mls/hr 01/15/25 13:25 01/19/25 04:30 Heparin Sodium/D5w 100 Units/Ml IV CONT 1,800 units/hr .[id number] TIFFANY 18 mls/hr Administration Protocol 1,800 UNITS/HR Lactated Ringer's 1,000 mls @ 30 mls/hr 01/17/25 12:40 01/19/25 08:09 Lr - Lactated Ringers Iv IV CONT Not Given .Q24H TIFFANY Lactated Ringer's 1,000 mls @ 30 mls/hr 01/17/25 12:40 01/19/25 08:10 Lr - Lactated Ringers Iv IV CONT Not Given .Q24H TIFFANY Lactated Ringer's 1,000 mls @ 30 mls/hr 01/17/25 13:00 01/19/25 08:10 Lr - Lactated Ringers Iv IV CONT Not Given .Q24H TIFFANY Ondansetron HCl 4 mg 01/13/25 18:06 Ondansetron Inj 4 Mg/2 Ml Vial IV PUSH Q4H PRN Nausea Ondansetron HCl 4 mg 01/17/25 12:38 Ondansetron Inj 4 Mg/2 Ml Vial IV PUSH ONCE PRN Nausea Oxybutynin Chloride 5 mg 01/14/25 15:10 01/18/25 08:30 Oxybutynin Chloride Xl 5 Mg Tab.Er.24 PO 5 mg QAM TIFFANY Administration Polyethylene Glycol 17 gm 01/15/25 16:19 01/18/25 14:49 Polyethylene Glycol 3350 17 Gm Powd.Pack PO 17 gm DAILY PRN Administration Constipation Radiology Results: ITS Impressions Pelvis Ultrasound 01/16/25 16:07 IMPRESSION: Findings within the bladder lumen which may represent thrombus (most likely), as detailed above. Quality VTE Prophylaxis VTE prophylaxis: mechanical ordered and pharmacologic ordered
[2025-01-19 09:49] VITALS: PULSE 67; RESP 20
[2025-01-19] MEDS: SPIRIVA 2 EACH INHALATION (09:49)
[2025-01-19] MEDS: allopurinoL 100 MG TABLET PO (09:49)
[2025-01-19] MEDS: BREO ELLIPTA 1 EACH INHALATION (09:49)
[2025-01-19] MEDS: oxyBUTYnin CHLORIDE XL 5 MG TAB.ER.24 PO (09:50)
[2025-01-19 12:39] LABS: Partial Thromboplastin Time 76.5 Seconds (22.3-36.8)
--- NOTE | 2025-01-19 13:20 | P.DS_ITS ---
DS: Admitting Diagnosis Discharge Date 01/19/25 Admitting Diagnosis Urinary Retention DS: Discharge Diagnosis Discharge Diagnosis (1) Hematuria: Code(s): R31.9 - Hematuria, unspecified Status: Acute (2) Acute urinary retention: Code(s): R33.8 - Other retention of urine Status: Acute DS: Summary Hospital Course Hospital Course: 69 y/o M with PMH of urothelial carcinoma, gout, and hyperlipidemia presents here with acute urinary retention. The patient presents here from home on 01/13 for further evaluation of acute urinary retention. He reports his last urination was 3 hours prior to arrival. This was precipitated by a hematuria with (size (clots). Urology was consulted and patient underwent cystoscopy with clot evaluated. continued CBI and urine has been clear more than 24 hours. continue follow up with Urology. Patient noted he is on full dose Lovenox bridge to Warfarin at home and follows very closely with his PCP who monitors his INR closely. Discontinued Heparin this morning and gave him one full dose lovenox. patient will continue Lovenox and Warfarin under supervision of his PCP. F/u with urology for bladder cancer ( already had prior resection) F/u with PCP in 3-5 days Time Spent with Patient Time attestation: Total time spent providing and/or coordinating discharge services: DS: Data Data Completed and Pending Labs on day of discharge: Labs from last 24 hours 01/19/25 12:22 APTT 76.5 H Discharge Plan Discharge Attending physician on discharge: Kaylie Tellez Consulting providers: Melissa Bravo Discharging Clinician: Kaylie Tellez Anticipated Discharge Date/Time: 01/19/25 13:18 Patient Disposition: Home Activity: as tolerated Diet: as tolerated and heart healthy Patient Instructions: Antibiotic Form Patient Language: Latvian Stand Alone Forms: General Discharge Information Follow-up/Referrals: Edu Springer MD [Physician] - 01/24/25 3:40 pm (Please arrive 15 minutes prior to scheduled appointment time) Discharge Medications: Continued allopurinol 100 mg tablet 100 mg PO DAILY atorvastatin 80 mg tablet 80 mg PO QPM enoxaparin 120 mg/0.8 mL syringe 120 mg subcut Q12H Spiriva Respimat 2.5 mcg/actuation mist 2 puff INHALATION Q24H fluticasone furoate-vilanterol [Breo Ellipta] 200-25 mcg/dose blister with device 1 inh INHALATION Q24H warfarin 4 mg tablet 4 mg PO WEEKLY Date of admission: 01/14/25 07:07 Primary Care Provider: April,Diaz Admitting Provider: Don Lopez Attending physician on admission: Colin Hyman Condition: Stable
[2025-01-19 14:00] VITALS: BP 118/75; PULSE 81; RESP 20; TEMP 36.7; O2SAT 93
--- NOTE | 2025-01-19 14:29 | P.PNUR_ITS ---
Progress Note: A&P Assessment and Plan (1) Bladder cancer: Qualifiers: Bladder location: unspecified site Qualified Code(s): C67.9 - Malignant neoplasm of bladder, unspecified Code(s): C67.9 - Malignant neoplasm of bladder, unspecified Status: Acute (2) Gross hematuria: Code(s): R31.0 - Gross hematuria Status: Acute (3) History of aortic valve replacement: Code(s): Z95.2 - Presence of prosthetic heart valve Status: Chronic (4) On continuous oral anticoagulation: Code(s): Z79.01 - detention (current) use of anticoagulants Status: Chronic Plan - Urologically cleared for discharge home with indwelling Love catheter. - Please plug inport on 3-way Love. - Love teaching/hygiene prior to discharge. Patient requesting leg bag and new night bag. - Anticoagulation per primary team. - Follow-up with Dr. Springer 01/24/25 for cancer consultation. Patient aware and agreeable. Subjective Subjective Date/Time Seen: 01/19/25 14:29 Interval history: NAEO; Patient eager for discharge, comfortable on exam Indwelling Love draining clear yellow urine with CBI clamped Exam Const: General: comfortable and no acute distress Resp: Effort & Inspection: normal respiratory effort Urinary Catheter: Urinary Catheter: patent and draining and urine clear Neuro: Speech: normal speech Psych: Mental Status: mental status grossly normal Objective Data Vital Signs Vital Signs: Vital Signs - 24 hr 01/18/25 20:00 01/18/25 21:09 01/19/25 05:34 Temperature 97.7 F 97.5 F L Pulse Rate 62 55 L Respiratory Rate 12 12 Blood Pressure 99/60 L 98/66 L Pulse Oximetry 95 94 Oxygen Delivery Room Air 01/19/25 09:49 Temperature Pulse Rate 67 Respiratory Rate 20 Blood Pressure Pulse Oximetry Oxygen Delivery Intake/Output Intake/Output: Intake & Output 01/16/25 01/17/25 01/18/25 01/19/25 23:59 23:59 23:59 23:59 Intake Total 1694.9 1766.6 1434.4 1058.4 Output Total 50397 09167 2350 1325 [facility] -22088.1 -8883.4 -915.6 -266.6 Meds/Results Medications: Active Medications Generic Name Dose Route Start Last Admin Trade Name Freq PRN Reason Stop Dose Admin Acetaminophen 650 mg 01/13/25 18:06 Acetaminophen 325 Mg Tablet PO Q4H PRN Mild Pain (1-3) or Fever Hydrocodone Bitart/Acetaminophen 1 tab 01/13/25 20:05 01/18/25 00:53 Hydrocodone/Acetaminophen (*Crx) 5-325 Mg Tablet PO 1 tab Q6H PRN Administration Pain Rated 4-6 Allopurinol 100 mg 01/14/25 09:00 01/19/25 09:49 Allopurinol 100 Mg Tablet PO 100 mg DAILY TIFFANY Administration Atorvastatin Calcium 80 mg 01/14/25 21:00 01/18/25 20:04 Atorvastatin 40 Mg Tablet PO 80 mg QHS TIFFANY Administration Enoxaparin Sodium 110 mg 01/19/25 02:00 Enoxaparin 120 Mg/0.8 Ml Syringe SUB-Q Q12H TIFFANY Fentanyl Citrate 25 mcg 01/17/25 12:38 01/17/25 14:45 Fentanyl Citrate Inj (*Crx) 100 Mcg/2 Ml Vial IV PUSH 25 mcg Q2M PRN Administration Pain Home Med 2 each 01/14/25 12:00 01/19/25 09:49 Home Medication-Spiriva INHALATION 02/13/25 11:59 2 each DAILY TIFFANY Administration Home Med 1 each 01/14/25 12:05 01/19/25 09:49 Home Medication-Breo Ellipta 200/25 INHALATION 02/13/25 12:04 1 each DAILY TIFFANY Administration Hydromorphone HCl 0.5 mg 01/19/25 10:11 Hydromorphone Hcl Inj (*Crx) 2 Mg/Ml Vial IV PUSH Q3H PRN Pain Rated 7-10 Hyoscyamine 0.125 mg 01/13/25 17:08 01/14/25 10:31 Hyoscyamine Sulfate 0.125 Mg Tablet SUBLINGUAL 0.125 mg Q4H PRN Administration Bladder Spasm Lactated Ringer's 1,000 mls @ 30 mls/hr 01/17/25 12:40 01/19/25 12:13 Lr - Lactated Ringers Iv IV CONT Not Given .Q24H TIFFANY Lactated Ringer's 1,000 mls @ 30 mls/hr 01/17/25 12:40 01/19/25 08:10 Lr - Lactated Ringers Iv IV CONT Not Given .Q24H TIFFANY Lactated Ringer's 1,000 mls @ 30 mls/hr 01/17/25 13:00 01/19/25 08:10 Lr - Lactated Ringers Iv IV CONT Not Given .Q24H TIFFANY Ondansetron HCl 4 mg 01/13/25 18:06 Ondansetron Inj 4 Mg/2 Ml Vial IV PUSH Q4H PRN Nausea Ondansetron HCl 4 mg 01/17/25 12:38 Ondansetron Inj 4 Mg/2 Ml Vial IV PUSH ONCE PRN Nausea Oxybutynin Chloride 5 mg 01/14/25 15:10 01/19/25 09:50 Oxybutynin Chloride Xl 5 Mg Tab.Er.24 PO 5 mg QAM TIFFANY Administration Polyethylene Glycol 17 gm 01/15/25 16:19 01/18/25 14:49 Polyethylene Glycol 3350 17 Gm Powd.Pack PO 17 gm DAILY PRN Administration Constipation Radiology Results: ITS Impressions Pelvis Ultrasound 01/16/25 16:07 IMPRESSION: Findings within the bladder lumen which may represent thrombus (most likely), as detailed above. Labs Labs: Laboratory Results - last 24 hr 01/19/25 12:22 APTT 76.5 H
[2025-01-19] MEDS: ENOXAPARIN 120 MG/0.8 ML SYRINGE 110 MG SUB-Q (14:44)
== END 2025-01-19 15:14 | disposition home or self-care (01) | DRG 688 ==
LOC: ANHED 15:56 → ANH3MEDSUR 18:54
PROVIDERS: Physician Assistant; Student in an Organized Health Care Education/Training Program; Urology; Admitting Provider General Practice; Emergency Provider Student in an Organized Health Care Education/Training Program; PCP Family Medicine; Visit Provider Internal Medicine
PROC: 0TCB8ZZ Extirpation of Matter from Bladder, Via Natural or Artificial Opening Endoscopic (ICD-10-PCS; CPT 52001; principal; 2025-01-17 12:30)
DX: C67.9 Malignant neoplasm of bladder, unspecified (principal); R31.0 Gross hematuria; R33.8 Other retention of urine; M10.9 Gout, unspecified; E78.5 Hyperlipidemia, unspecified; I95.89 Other hypotension; D72.829 Elevated white blood cell count, unspecified; Z79.01 Long term (current) use of anticoagulants; Z95.2 Presence of prosthetic heart valve; Z87.891 Personal history of nicotine dependence
CPT/HCPCS: 36415; 76857; 80048; 80053; 85025; 85610; 85730; 93005; 94640; 96361; 96374; 96375; 96376; 99285; A9270; G0378; J0690; J1100; J1171; J1644; J1650; J2003; J2270; J2405; J2704; J3010; J7030; J7120